=== PATIENT | male | born 1955 | race Caucasian/White ===

== ENCOUNTER 2019-09-21 00:27 | Outpatient (CLI) | payer BC, SELFPAY ==
[2019-09-21 19:45] LABS: SARS-CoV-2 RNA PCR Negative
== END 2019-09-21 00:28 | disposition home or self-care (01) ==
LOC: ANHCOVIDDT 00:27
PROVIDERS: PCP Internal Medicine; Visit Provider Internal Medicine Gastroenterology
DX: Z01.812 Encounter for preprocedural laboratory examination (principal); Z11.59 Encounter for screening for other viral diseases
CPT/HCPCS: 87635; C9803; U0003

== ENCOUNTER 2019-09-23 03:25 | Day surgery (SDC) | payer BC, SELFPAY ==
[2019-09-16 11:17] VITALS: BMI 36.6
[2019-09-23 06:37] VITALS: BP 142/72; PULSE 52; RESP 18; TEMP 36.1; O2SAT 98
[2019-09-23] MEDS: LACTATED RINGERS 1,000 ML 150 ML IV CONT (06:53)
--- NOTE | 2019-09-23 07:20 | WPDANESEPPF ---
Anes - Initial Pre Proc Eval Procedure: Operation Date: 09/23/19 08:00 Proposed Procedures p Screening Colonoscopy - Booker Chase DO Date/Time: 09/23/19 07:20 Surgeon: Booker Chase DO Pre Op Diagnosis: Hx of Malignant Large Neoplasm Of Colon Patient Data Age: 63 Gender: M Height: 1.8 m Weight: 119.2 kg Last Vital Signs Temp 36.1 C L 09/23/19 06:37 Pulse 52 L 09/23/19 06:37 Resp 18 09/23/19 06:37 BP 142/72 H 09/23/19 06:37 Pulse Ox 98 09/23/19 06:37 Allergies Allergy/AdvReac Type Severity Reaction Status Date / Time lisinopril Allergy Unknown Hives Verified 09/23/19 06:38 Home Medications Medication Instructions Recorded Confirmed Type amlodipine 10 mg tablet 10 mg PO DAILY #90 tablet 09/07/19 09/23/19 Rx atorvastatin 40 mg tablet 40 mg PO DAILY #90 tablet 09/07/19 09/23/19 Rx losartan 100 mg tablet 100 mg PO DAILY #90 tablet 09/07/19 09/23/19 Rx metoprolol succinate 25 mg 25 mg PO DAILY #90 tablet 09/07/19 09/23/19 Rx tablet,extended release 24 hr omeprazole 20 mg capsule,delayed 20 mg PO BID #180 cap 09/07/19 09/23/19 Rx release doxazosin 8 mg PO DAILY 09/16/19 09/23/19 History hydrochlorothiazide 12.5 mg PO DAILY 09/16/19 09/23/19 History Patient hx anesthesia problems: none Family hx anesthesia problems: none [facility] Past Medical History Medical History (Updated 09/23/19 @ 07:21 by Sp Rowland MD) Essential (primary) hypertension History of colon cancer Mixed hyperlipidemia Obesity EFE on CPAP Surgical History Surgical History H/O hernia repair H/O rotator cuff surgery History of colon resection Social History Social History Smoking status: Never smoker Alcohol intake: current Anes - Eval Final PreProcedure Day of Procedure 09/23/19 07:20 Patient weight: obese Heart: regular rate and rhythm Lungs: clear to auscultation and normal air movement Airway: Mallampati scale Neurological: alert and oriented Last oral intake: >/= 8 hours ASA classification: III Emergent: no Anesthetic plan: proceed Anesthesia type and monitoring: general GIVS Informed Consent: The patient's anesthetic plan and its attendant risks and benefits were discussed with the patient/family/POA. Questions were solicited and answers provided to the satisfaction of the patient/family/POA.
--- NOTE | 2019-09-23 08:09 | PM.IMHP ---
H&P: HPI History of Present Illness Chief complaint: Hx of Malignant Large Neoplasm Of Colon Narrative: Reason for visit screening and surveillance colonoscopy. This very pleasant gentleman seen in consultation at the request of the primary. Impression: History of colorectal cancer status post resection. Per past medical history. Recommendation: Will proceed with colonoscopy. History: This very pleasant gentleman is status post right hemicolectomy for adenocarcinoma of the colon. He had a polyp with invasive adenocarcinoma removed. Subsequent right hemicolectomy was carried out. He had a liver biopsy which was unremarkable. Physical examination: General: very pleasant patient in no acute distress. HEENT: Head was normocephalic sclerae is clear mouth without masses neck was supple. Heart: Rate rhythm regular without S3 or S4. Lungs: CTA. Abdomen: Soft with no guarding or rigidity. Bowel sounds were active. Neurologic: Cranial nerves 2 through 12 intact. No focal defects. No clonus. Musculoskeletal system: Revealed no joint tenderness or swelling no muscle atrophy. Extremities: Reveal no significant edema. Skin: Warm and dry with normal turgor. Mental status: intact. Patient is alert and oriented. Review of Systems Review of Systems: All systems reviewed & are unremarkable except as noted in HPI and below PMFSH Past Medical History Medical History (Updated 09/23/19 @ 08:08 by Booker Chase DO) BPH (benign prostatic hyperplasia) Essential (primary) hypertension History of colon cancer HLD (hyperlipidemia) HTN (hypertension) Obesity EFE on CPAP Surgical History Surgical History (Updated 09/23/19 @ 08:09 by Booker Chase DO) H/O colonoscopy H/O hernia repair H/O rotator cuff surgery History of colon resection Social History Social History Smoking status: Never smoker Alcohol intake: current Meds Home Medications and Allergies Home Medications Medication Instructions Recorded Confirmed Type amlodipine 10 mg tablet 10 mg PO DAILY #90 tablet 09/07/19 09/23/19 Rx atorvastatin 40 mg tablet 40 mg PO DAILY #90 tablet 09/07/19 09/23/19 Rx losartan 100 mg tablet 100 mg PO DAILY #90 tablet 09/07/19 09/23/19 Rx metoprolol succinate 25 mg 25 mg PO DAILY #90 tablet 09/07/19 09/23/19 Rx tablet,extended release 24 hr omeprazole 20 mg capsule,delayed 20 mg PO BID #180 cap 09/07/19 09/23/19 Rx release doxazosin 8 mg PO DAILY 09/16/19 09/23/19 History hydrochlorothiazide 12.5 mg PO DAILY 09/16/19 09/23/19 History Allergies Allergy/AdvReac Type Severity Reaction Status Date / Time lisinopril Allergy Unknown Hives Verified 09/23/19 06:38 Vital Signs Vital Signs - 24 hr 09/23/19 06:37 Temperature 36.1 C L Pulse Rate 52 L Respiratory Rate 18 Blood Pressure 142/72 H Pulse Oximetry 98
[2019-09-23 08:36] VITALS: BP 101/67; PULSE 57; RESP 16; O2SAT 99
[2019-09-23 08:46] VITALS: BP 122/75; PULSE 43; RESP 18; O2SAT 99
[2019-09-23 08:56] VITALS: BP 130/83; PULSE 46; RESP 18; O2SAT 99
== END 2019-09-23 09:15 | disposition home or self-care (01) ==
PROVIDERS: PCP Internal Medicine; Visit Provider Internal Medicine Gastroenterology
PROC: 0DJD8ZZ Inspection of Lower Intestinal Tract, Via Natural or Artificial Opening Endoscopic (ICD-10-PCS; CPT 45378; principal; 2019-09-23 08:00)
DX: Z12.11 Encounter for screening for malignant neoplasm of colon (principal); D12.3 Benign neoplasm of transverse colon; K64.8 Other hemorrhoids; Z85.038 Personal history of other malignant neoplasm of large intestine; Z98.0 Intestinal bypass and anastomosis status; Z90.49 Acquired absence of other specified parts of digestive tract; I10 Essential (primary) hypertension; E78.2 Mixed hyperlipidemia; G47.33 Obstructive sleep apnea (adult) (pediatric); E66.9 Obesity, unspecified; Z68.36 Body mass index [BMI] 36.0-36.9, adult
CPT/HCPCS: 45380; 88305; J2704; J7120

== ENCOUNTER 2020-07-20 10:00 | Outpatient (CLI) | payer BC, SELFPAY ==
--- NOTE | ~2020-07-20 | US_ITS ---
EXAMINATION:US venous doppler LE RT INDICATION:Soft tissue disorder TECHNIQUE: Multiple grayscale, color flow and Doppler images of the right lower extremity deep venous systems were obtained and reviewed. COMPARISON:No prior studies for comparison. FINDINGS: The common femoral, superficial femoral and popliteal veins demonstrate normal respiratory variation, augmentation and compressibility. Color flow is also seen within the posterior tibial, pe roneal, greater saphenous and profunda veins. IMPRESSION: 1: No lower extremity deep venous thrombosis. Reviewed, dictated and finalized at location B.
== END 2020-07-20 10:01 | disposition home or self-care (01) ==
PROVIDERS: PCP Internal Medicine; Visit Provider Nurse Practitioner
DX: M79.89 Other specified soft tissue disorders (principal)
CPT/HCPCS: 93971

== ENCOUNTER 2022-09-04 07:00 | Day surgery (SDC) | payer BC, SELFPAY ==
[2022-08-26 13:36] VITALS: BMI 36.3
--- NOTE | 2022-09-03 12:37 | PM.HPGS ---
History of Present Illness History of Present Illness Consent: Risks, benefits, and alternatives have been discussed and questions answered. Patient agrees to proceed with procedure. Chief complaint: hx of maligant neoplasm Narrative: Cyril Chau is a 66 year old male referred for colon cancer screening. He is high risk because he has had a prior carcinoma of the ascending colon. He has had a right colectomy. His last colonoscopy was 3 years ago. Polyp was removed at that time Review of Systems Review of Systems: All systems reviewed & are unremarkable except as noted in HPI and below PMFSH Past Medical History Medical History BPH (benign prostatic hyperplasia) Essential (primary) hypertension History of colon cancer Obesity EFE on CPAP Surgical History Surgical History H/O colonoscopy H/O hernia repair H/O rotator cuff surgery History of colon resection Family History Family History Father Family history of malignant neoplasm Patient's father is Mother Family history of dementia Family history of malignant neoplasm Social History Social History Smoking packs per day: 0.75 Smoking cigarettes per day: 15.0 Years smoked: 10 Smoking pack-years: 7.50 Smoking status: Never smoker Tobacco type: cigarettes Smoking end date: 05/14/91 Alcohol intake: current Drinks per week: 20 Substance use: never Substance use type: does not use Lack of Transportation: No Lack of Food: Never True Current Housing: I Have Housing Concerned About Future Housing: No Difficulty Paying Gas/Electric Bills: No Difficulty Paying for Meds: No Currently Unemployed: No Education: High School Diploma/GED Difficulty w/ Childcare or Family Care: No Living arrangements: other Additional living arrangements comments: With Occupation/Education: retired Gender identity (if verbalized by the patient): Male Meds Home Medications and Allergies Home Medications Medication Instructions Recorded Confirmed Type atorvastatin 40 mg tablet 40 mg PO DAILY #90 tabs 04/08/22 08/26/22 Rx omeprazole 20 mg capsule,delayed See Rx Instructions .Route 04/08/22 08/26/22 Rx release .COMPLEX #180 caps amlodipine 10 mg tablet See Rx Instructions .Route 08/12/22 08/26/22 Rx .COMPLEX #90 tabs doxazosin 8 mg tablet See Rx Instructions .Route 08/12/22 08/26/22 Rx .COMPLEX #90 tabs hydrochlorothiazide 12.5 mg capsule See Rx Instructions .Route 08/12/22 08/26/22 Rx .COMPLEX #90 caps metoprolol succinate 25 mg See Rx Instructions .Route 08/12/22 08/26/22 Rx tablet,extended release 24 hr .COMPLEX #90 tabs losartan 100 mg tablet See Rx Instructions .Route 08/14/22 08/26/22 Rx .COMPLEX #90 tabs Allergies Allergy/AdvReac Type Severity Reaction Status Date / Time lisinopril Allergy Mild Hives Verified 08/26/22 13:34 Exam Const: General: alert Orientation/consciousness: patient oriented x3 Resp: Auscultation: clear to auscultation bilaterally Cardio: Rhythm: regular rhythm GI: GI Palp: Yes Soft to palpation and No Tenderness to palpation present (GI) Neuro: General: patient oriented x3 Assessment and Plan Assessment and plan (1) History of colon cancer: Code(s): Z85.038 - Personal history of other malignant neoplasm of large intestine Status: Acute Assessment and Plan: Colonoscopy with possible biopsy or polypectomy or cautery or injection of substances. Plan Colonoscopy with possible biopsy or polypectomy or cautery or injection of substances.
--- NOTE | 2022-09-05 06:34 | SUR.PREOP ---
Paper documentation exist due to [employer] system being down from 09/04/22 0030 till 1930.
== END 2022-09-04 08:30 | disposition home or self-care (01) ==
PROVIDERS: PCP Nurse Practitioner; Visit Provider Internal Medicine Gastroenterology
PROC: 0DJD8ZZ Inspection of Lower Intestinal Tract, Via Natural or Artificial Opening Endoscopic (ICD-10-PCS; CPT 45378; principal; 2022-09-04 07:30)
DX: Z12.11 Encounter for screening for malignant neoplasm of colon (principal); K64.8 Other hemorrhoids; K57.30 Diverticulosis of large intestine without perforation or abscess without bleeding; Z98.0 Intestinal bypass and anastomosis status; Z90.49 Acquired absence of other specified parts of digestive tract; Z85.038 Personal history of other malignant neoplasm of large intestine; I10 Essential (primary) hypertension; G47.33 Obstructive sleep apnea (adult) (pediatric); N40.0 Benign prostatic hyperplasia without lower urinary tract symptoms; Z87.891 Personal history of nicotine dependence
CPT/HCPCS: 45378; J2704; J7120

== ENCOUNTER 2022-10-31 09:10 | Outpatient (CLI) | payer MEDICARE, SELFPAY ==
--- NOTE | 2022-10-31 09:32 | ECG_ITS ---
Measurements Intervals [place] Rate: 52 P: 38 NH: 195 QRS: -16 QRSD: 110 T: 23 QT: 486 QTc: 453 Interpretive Statements SINUS BRADYCARDIA WITH SINUS ARRHYTHMIA MINIMAL VOLTAGE CRITERIA FOR LVH, CONSIDER NORMAL VARIANT [MEETS CRITERIA IN ONE OF: R(aVL), S(V1), R(V5), R(V5/V6)+S(V1)] PROLONGED QT INTERVAL ARTIFACT LIMITS INTERPRETATION ABNORMAL ECG NO PREVIOUS ECG AVAILABLE FOR COMPARISON Electronically Signed On 10-31-2022 13:05:38 CDT by Yeison Rae M.D.
[2022-10-31 10:20] LABS: Anion Gap 5 mmol/L (8-16); Blood Urea Nitrogen 18 mg/dL (9-20); Calcium 9.1 mg/dL (8.4-10.2); Carbon Dioxide 30 mmol/L (22-30); Chloride 101 mmol/L (98-107); Estimated Glomerular Filt Rate > 60; Glucose 104 mg/dL (65-110); Potassium 4.3 mmol/L (3.4-5.0); Sodium 136 mmol/L (137-145)
== END 2022-10-31 09:11 | disposition home or self-care (01) ==
LOC: ANHSURGERY 09:16
PROVIDERS: Anesthesiology; PCP Nurse Practitioner; Visit Provider Urology
DX: I10 Essential (primary) hypertension (principal); Z79.899 Other long term (current) drug therapy; Z01.818 Encounter for other preprocedural examination
CPT/HCPCS: 36415; 80048; 93005

== ENCOUNTER 2022-11-05 04:12 | Day surgery (SDC) | payer MEDICARE, SELFPAY ==
[2022-10-28 15:30] VITALS: BMI 36.3
--- NOTE | 2022-10-28 15:32 | SUR.PREOP ---
Report to the Outpatient Waiting Room, entrance under the green pavilion located off [facility], at time _0615 on date _11/05/22 . Planned Procedure Time: _814 . Time changes happen often and if your time is changed the preop area will call you the afternoon before. - You and your visitor will be asked to self-screen and do not enter if you have any COVID symptoms. - A mask is optional within the hospital at this time. Patients may have clear liquids (water, carbonated beverages, clear teas, apple juice) until 3 hours prior to surgery with a maximum of 20 ounces. - No food from midnight until time of surgery - Infants may have breast milk until 4 hours before surgery, infant formula 6 hours prior to surgery. - Children will be allowed to drink immediately following surgery. If applicable, please bring a bottle or sippy cup to assist with drinking. Juice, water, soda, and popsicles are readily available. For infants on formula, please bring formula the day of surgery. Pacifiers are allowed. Take the following medications with a SIP of water the morning of surgery: _AMLODIPINE,METOPROLOL DO NOT STOP ANY OF YOUR OTHER PRESCRIPTION MEDICATIONS PRIOR TO SURGERY ?EXCEPT THE FOLLOWING Medications to discontinue per physician VITAMINS SUPPLEMENTS Date to take last dose___11/02/22 Please no make-up, nail english, hairspray, perfume, deodorant, or body powder the day of surgery. No jewelry (including any body piercings) or valuables the day of surgery, leave them at home. Please take a shower or bath the night before, or the morning of, surgery with an antibacterial soap. Wear comfortable, loose fitting clothing. Children are encouraged to wear pajamas. - Jewelry must be removed prior to entering the operating room. Rings and piercings that are not removed may be cut off. - The hospital will not accept responsibility for valuables. - Please leave all valuables, including medications, at home the day of surgery. If you are going home after surgery, a licensed dedicated intermodal truck driver must drive you home. - NO public transportation without another adult if you receive anesthesia. - We recommend that an adult stay with you for 24 hours following discharge. - We also recommend that you do not drive, make important decision, drink alcoholic beverages, or take any drugs that were not prescribed by your health care provider for at least 24 hours after your discharge time. For Pediatric surgeries, we recommend two adults accompany the child home. Follow any additional instructions given to you from your surgeon. If you or anyone in your household have experienced Covid symptoms in the past week, please notify your surgeon or the nurse liaison at the phone number below for possible testing. Telephone instructions given to _PRAKASH MAY and asked if any additional questions and then verbalized understanding. Patient advised to call surgeon office or pre surgery nurse liaison [phone] if any additional questions.
[2022-11-05] VITALS (7 sets, daily range): BP systolic 120–152; BP diastolic 67–91; PULSE 48–57; RESP 14–18; TEMP 36.3–37.1; O2SAT 94–97
[2022-11-05] MEDS: LACTATED RINGERS 1,000 ML 30 ML IV CONT (06:57)
--- NOTE | 2022-11-05 07:37 | WPDANESEPPF ---
Anes - Initial Pre Proc Eval Procedure: Operation Date: 11/05/22 08:15 Proposed Procedures p Left Hydrocelectomy - Darius Anthony MD Date/Time: 11/05/22 07:37 Surgeon: Darius Anthony MD Pre Op Diagnosis: left hydrocele Patient Data Age: 66 Gender: M Height: 1.8 m Weight: 119.6 kg Last Vital Signs Temp 97.3 F L 11/05/22 06:58 Pulse 50 L 11/05/22 06:58 Resp 16 11/05/22 06:58 BP 135/67 11/05/22 06:58 Pulse Ox 97 11/05/22 06:58 O2 Del Method Room Air 11/05/22 06:58 Allergies Allergy/AdvReac Type Severity Reaction Status Date / Time lisinopril Allergy Mild Hives Verified 11/05/22 06:36 Home Medications Medication Instructions Recorded Confirmed Type atorvastatin 40 mg tablet 40 mg PO DAILY #90 tabs 04/08/22 10/28/22 Rx omeprazole 20 mg capsule,delayed See Rx Instructions .Route 04/08/22 10/28/22 Rx release .COMPLEX #180 caps amlodipine 10 mg tablet See Rx Instructions .Route 08/12/22 10/28/22 Rx .COMPLEX #90 tabs doxazosin 8 mg tablet See Rx Instructions .Route 08/12/22 10/28/22 Rx .COMPLEX #90 tabs hydrochlorothiazide 12.5 mg capsule See Rx Instructions .Route 08/12/22 10/28/22 Rx .COMPLEX #90 caps metoprolol succinate 25 mg See Rx Instructions .Route 08/12/22 10/28/22 Rx tablet,extended release 24 hr .COMPLEX #90 tabs losartan 100 mg tablet See Rx Instructions .Route 08/14/22 10/28/22 Rx .COMPLEX #90 tabs coenzyme Q10 100 mg capsule 100 mg PO DAILY 10/28/22 10/28/22 History (CoQ-10) fiber 1 cap PO DAILY 10/28/22 10/28/22 History omega 9-xml-axr-fish oil 300 1 cap PO DAILY 10/28/22 10/28/22 History mg-1,000 mg capsule (Fish Oil) saw palmetto 160 mg capsule 160 mg PO BID 10/28/22 10/28/22 History Patient hx anesthesia problems: none Family hx anesthesia problems: none Results Review: All pre-operative results and documents have been reviewed as part of the pre-operative evaluation. [facility] Past Medical History Medical History BPH (benign prostatic hyperplasia) Essential (primary) hypertension History of colon cancer Obesity EFE on CPAP Surgical History Surgical History H/O colonoscopy H/O hernia repair H/O rotator cuff surgery History of colon resection Family History Family History Father Family history of malignant neoplasm Patient's father is Mother Family history of dementia Family history of malignant neoplasm Social History Social History Smoking packs per day: 0.75 Smoking cigarettes per day: 15.0 Years smoked: 10 Smoking pack-years: 7.50 Smoking status: Former smoker Tobacco type: cigarettes Smoking end date: 03/24/09 Additional smoking assessment comments: cigarettes 1 pp week 5 years Alcohol intake: current Drinks per week: 5 Substance use: never Substance use type: does not use Lack of Transportation: No Lack of Food: Never True Current Housing: I Have Housing Concerned About Future Housing: No Difficulty Paying Gas/Electric Bills: No Difficulty Paying for Meds: No Currently Unemployed: No Education: High School Diploma/GED Difficulty w/ Childcare or Family Care: No Living arrangements: with family Additional living arrangements comments: With Occupation/Education: retired Gender identity (if verbalized by the patient): Male Spiritual care concerns: No Anes - Eval Final PreProcedure Day of Procedure 11/05/22 07:37 Patient weight: obese Heart: regular rate and rhythm Lungs: clear to auscultation Airway: Mallampati scale class II Neurological: alert and oriented Last oral intake: >/= 8 hours ASA classification: III Emergent: no Anesthetic plan: proceed Anesthesia type and monitoring: general LMA and standard monit
--- NOTE | 2022-11-05 07:37 | WPDHPUPDATE1 ---
History and Physical Update Update Date/Time: 11/05/22 07:37 History and Physical has been reviewed, including an updated exam of the patient. There are NO changes in the patient's condition. Risks, benefits, and alternatives have been discussed and questions answered. Patient agrees to proceed with left hydrocelectomy and orchiopexy
[2022-11-05] MEDS: ceFAZolin 2 GM/D5W 50 ML 2 GM/50 ML BAG IVPB (08:37)
[2022-11-05] MEDS: LIDOCAINE HCL 1% LOCAL INJ 20 ML VIAL INFILTRATE (09:06)
--- NOTE | 2022-11-05 10:00 | W.PM.PROC2 ---
Procedure Note - Detailed Date of Procedure 11/05/22 Pre-op Diagnosis left hydrocele Post-op Diagnosis Same (Left hydrocele, left spermatocele) Procedure Performed Scrotal exploration with left hydrocelectomy, left spermatocelectomy, left orchiopexy Surgeon Darius Anthony MD Anesthesia General Description of Procedure Patient was taken to the operative suite correctly identified. Once anesthesia was obtained was prepped and draped usual sterile fashion. Transverse incision was made along the left hemiscrotum. This carried down to the tunica. The entire hydrocele was brought out into the operative field. The hydrocele was opened and drained of some clear straw colored fluid. It was loculated. The hydrocele sac was sent for pathologic review after was excised. Patient was also then noted to have loculated spermatoceles. These were carried down to its origin. Its origin was ligated. The appendix testes was removed. Hemostasis was achieved using electrocautery. Quarter-inch Yoselyn drain was then placed through a separate stab incision and secured. An orchiopexy was then performed by securing it in 3 points using Ethibond suture. Tunica was closed using 3-0 chromic in a running fashion. Skin was anesthetized with 1% lidocaine. Skin was closed with using 3-0 chromic in a running fashion also. Patient was taken recovery room stable condition. He will remove the Yoselyn drain in 2-3 days. This completes dictation. Please send a copy to my office Estimated Blood Loss 0 Drains Yes Packing No Pathology Yes (Hydrocele sac, spermatocele sac) Complications No immediate complications Condition Stable Disposition PACU
[2022-11-05] MEDS: fentaNYL CITRATE INJ (*CRX) 100 MCG/2 ML VIAL 25 MCG IV PUSH ×8 (10:18→10:54)
[2022-11-05] MEDS: oxyCODONE HCL (*CRX) 5 MG TAB IR PO (11:05)
== END 2022-11-05 11:38 | disposition home or self-care (01) ==
PROVIDERS: PCP Nurse Practitioner; Visit Provider Urology
PROC: (CPT 55040; principal; 2022-11-05 08:15)
DX: N43.3 Hydrocele, unspecified (principal); N43.42 Spermatocele of epididymis, multiple; I10 Essential (primary) hypertension; G47.33 Obstructive sleep apnea (adult) (pediatric); N40.0 Benign prostatic hyperplasia without lower urinary tract symptoms; Z85.038 Personal history of other malignant neoplasm of large intestine; Z90.49 Acquired absence of other specified parts of digestive tract; E66.9 Obesity, unspecified; Z68.36 Body mass index [BMI] 36.0-36.9, adult; Z87.891 Personal history of nicotine dependence
CPT/HCPCS: 55040; 54640; 88302; 88304; A9270; J0690; J1100; J2405; J2704; J3010; J7120

== ENCOUNTER 2023-10-24 08:22 | Outpatient (CLI) | payer MEDICARE, SELFPAY ==
--- NOTE | ~2023-10-24 | MR_ITS ---
MRI of the right shoulder Technique: Axial proton-density fat-sat images, coronal proton density fat-sat and T2 fat-sat images, and sagittal T1-weighted and T2 fat-sat images were acquired. Clinical History: Pain Findings: There is moderate AC joint degenerative change. Coracoclavicular, coracoacromial, and corac ohumeral ligaments are intact. There are complete, full-thickness tears involving the entirety of the supraspinatus and infraspinatu s tendons, which are retracted to the level of the glenohumeral joint. Fluid-filled gap measures 5.2 x 4.8 cm in extent. Subscapularis tendon demonstrates moderate grade articular surface partial tearin g at its midportion. Tendon of long head of the biceps is probably completely ruptured and retracted to the bicipital groove region. No labral tear evident. Inferior glenohumeral ligament is intact. There is glenohumeral joint effusion, with fluid passing th rough the rotator cuff defect into the subacromial/subdeltoid bursa. There is subcoracoid bursal flui d distention. There is mild chondromalacia diffusely of the humeral head. Probable mild fatty atrophy of the supraspinatus and infraspinatus muscle bellies. Impression: Complete, full-thickness tears of the supraspinatus and infraspinatus tendons, as detailed above. Ass ociated mild fatty atrophy of the relevant muscle bellies. Probable complete rupture of the proximal long head biceps tendon with retraction to the bicipital gr oove. Moderate AC joint degenerative change. Mild glenohumeral joint degenerative change. Reviewed, dictated and finalized at location . Impression: Complete, full-thickness tears of the supraspinatus and infraspinatus tendons, as detailed above. Associated mild fatty atrophy of the relevant muscle bellies . Probable complete rupture of the proximal long head biceps tendon with retracti on to the bicipital groove. Moderate AC joint degenerative change. Mild glenohumeral joint degenerative campos nge.
== END 2023-10-24 08:23 ==
PROVIDERS: PCP Family Medicine
DX: M75.121 Complete rotator cuff tear or rupture of right shoulder, not specified as traumatic (principal); M19.011 Primary osteoarthritis, right shoulder
CPT/HCPCS: 73221

== ENCOUNTER 2023-12-10 09:50 | Outpatient (CLI) | payer MEDICARE, SELFPAY ==
--- NOTE | ~2023-12-10 | US_ITS ---
EXAMINATION: US carotid duplex BI DATE: 12/10/2023 10:48 INDICATION: Occlusion and stenosis of unspecified carotid artery. TECHNIQUE: Grayscale, color Doppler, and pulsed Doppler images of the cervical carotid arteries were obtained. The degree of vessel stenosis is placed in one of the following categories: normal, <50%, 5 0-69%, >=70% but less than near-occlusion, near-occlusion, or total occlusion. Note that percent sten osis relative to normal distal artery lumen diameter is indirectly measured from velocity measurement s as described by Nitish, et al. Radiology 2003; 229:340-346. COMPARISON: None. FINDINGS: RIGHT: The right common carotid artery (CCA) peak systolic velocity (PSV) is 92 cm/s. The right internal car otid artery (ICA) PSV is 51 cm/s. The right ICA end-diastolic velocity (EDV) is 9 cm/s. The right ICA /CCA PSV ratio is 0.6. Grayscale and color Doppler images yield an estimate of <50% diameter reductio n from plaque in the ICA. There is antegrade flow in the right vertebral artery. LEFT: The left CCA PSV is 114 cm/s. The left ICA PSV is 94 cm/s. The left ICA EDV is 28 cm/s. The left ICA/ CCA PSV ratio is 0.8. Grayscale and color Doppler images yield an estimate of <50% diameter reduction from plaque in the ICA. There is antegrade flow in the left vertebral artery. IMPRESSION: 1. <50% stenosis in the right internal carotid artery. 2. <50% stenosis in the left internal carotid artery. Reviewed, dictated and finalized at location A.
== END 2023-12-10 09:51 | disposition home or self-care (01) ==
PROVIDERS: PCP Family Medicine; Visit Provider Family Medicine
DX: I73.9 Peripheral vascular disease, unspecified (principal); M79.89 Other specified soft tissue disorders; I65.23 Occlusion and stenosis of bilateral carotid arteries
CPT/HCPCS: 93880

== ENCOUNTER 2024-01-29 08:51 | Outpatient (CLI) | payer MEDICARE, SELFPAY ==
--- NOTE | ~2024-01-29 | US_ITS ---
EXAMINATION: US arterial ankle brachial ind DATE: 01/29/2024 09:36 INDICATION: Peripheral vascular disease, unspecified. TECHNIQUE: Segmental pressures and plethysmographic and Doppler waveforms of the brachial and lower e xtremity arteries were obtained. COMPARISON: None. FINDINGS: Right and left brachial artery pressures of 144 mm Hg and 135 mm Hg, respectively, are concordant (no rmal difference <= 30 mmHg). The right ankle-brachial index (SRI) could not be obtained due to inability to cuff occlude the arter ies (normal >= 0.9-1.0). The right great toe-brachial index (TBI) is 0.91 (normal >= 0.65). Arterial Doppler waveforms are at least biphasic at the ankle. The left SRI is 1.33. The left TBI is 0.90. Arterial Doppler waveforms are at least biphasic at the a nkle. IMPRESSION: 1. No significant arterial occlusive disease. Reviewed, dictated and finalized at location A. ICAL PROFESSOR
== END 2024-01-29 08:52 | disposition home or self-care (01) ==
PROVIDERS: PCP Family Medicine; Visit Provider Family Medicine
DX: I73.9 Peripheral vascular disease, unspecified (principal); M79.89 Other specified soft tissue disorders
CPT/HCPCS: 93922

== ENCOUNTER 2024-02-19 12:35 | Emergency (ER) | payer MEDICARE, SELFPAY ==
[2024-02-19 12:50] VITALS: BP 129/66; PULSE 60; RESP 16; TEMP 36.6; O2SAT 100
--- NOTE | 2024-02-19 12:59 | ED.SKABFB ---
HPI - Skin/Abscess/Foreign Bdy General Chief complaint: Skin/Abscess/Foreign Body Stated complaint: RASH/HIVES Time Seen by Provider: 02/19/24 12:40 History of Present Illness HPI narrative: Patient is a 68-year-old male who presents ER with concerns for rash. Reports he woke up this morning and was having itching to his left foot and leg as well as his back. He noticed some hives. He then went and took a shower. Symptoms started 4 taking his home medications. He reports he has had no oxycodone or anti-inflammatory medication today. No difficulty breathing or swallowing. No evidence of rash at this time but he is itching his left arm and leg. No new fabric softeners/ laundry detergents/body washes/ lungs. Related Data Home Medications Medication Instructions Recorded Confirmed coenzyme Q10 100 mg capsule 100 mg PO DAILY 10/28/22 04/01/23 (CoQ-10) saw palmetto 160 mg capsule 160 mg PO DAILY 04/01/23 04/01/23 fiber 4 cap PO DAILY 05/20/23 omega 2-aga-dlc-fish oil 300 1 cap PO BID 05/20/23 mg-1,000 mg capsule (Fish Oil) Allergies Allergy/AdvReac Type Severity Reaction Status Date / Time lisinopril Allergy Mild Hives Verified 02/19/24 12:35 Review of Systems Constitutional: Constitutional: Reports no additional constitutional complaints ENT: Reports system reviewed and no additional complaints, except as documented Respiratory: Respiratory: Reports no additional respiratory complaints Musculoskeletal: Musculoskeletal: Reports no additional musculoskeletal complaints Integumentary/Breasts: Skin/Breast: Reports pruritus, Denies erythema and Denies rash COUNT INCLUDES THE [facility] Past Medical History Medical History (Updated 02/19/24 @ 13:02 by Felton Keen MD) BPH (benign prostatic hyperplasia) Essential (primary) hypertension History of colon cancer Obesity EFE on CPAP Surgical History Surgical History H/O colonoscopy H/O hernia repair H/O rotator cuff surgery History of colon resection Family History Family History Father Family history of malignant neoplasm Patient's father is Mother Family history of dementia Family history of malignant neoplasm Social History Social History Smoking packs per day: 0.75 Smoking cigarettes per day: 15.0 Years smoked: 10 Smoking pack-years: 7.50 Smoking status: Former smoker Tobacco type: cigarettes Smoking end date: 03/24/19 Additional smoking assessment comments: cigarettes 1 pp week 5 years Alcohol intake: current Drinks per week: 5 Substance use: never Substance use type: does not use Do You Feel Safe in your Home?: Yes Lack of Transportation: No Lack of Food: Never True Current Housing: I Have Housing Concerned About Future Housing: No Difficulty Paying Gas/Electric Bills: No Difficulty Paying for Meds: No Currently Unemployed: No Education: High School Diploma/GED Difficulty w/ Childcare or Family Care: No Living arrangements: with family Additional living arrangements comments: With Occupation/Education: retired Gender identity (if verbalized by the patient): Male Sexual Orientation (if Verbalized by the Patient): Straight or Heterosexual Spiritual care concerns: No Agree to blood products: Yes Exam Narrative: GENERAL: Well-appearing, well-nourished, and in no acute distress. HEAD: Normocephalic, atraumatic. ENT: Mucous membranes moist. EXTREMITIES: Normal range of motion. No edema. SKIN: Warm, dry, no rash. FLaky dry skin. NEURO: Alert and oriented x3. PSYCH: Normal mood and affect. Course Course Emergency Course: Patient walked out after registration before he could receive discharge papers. He is to take Zyrtec and/or Benadryl as needed for itching at home. Also recommended that he purchase a hydrating skin lotion without perfumes as he appears to have some dry skin. Discharge Plan Discharge Clinical Impression: Rash Patient Disposition: Home, Self-Care Condition: Stable Instructions: Itchy Skin (ED) Prescriptions: No Action Zepbound 2.5 mg/0.5 mL pen injector 2.5 mg subcut WEEKLY Qty: 2 0RF Rx Instructions: for 4 weeks coenzyme Q10 [CoQ-10] 100 mg Capsule 100 mg PO DAILY saw palmetto 160 mg capsule 160 mg PO DAILY Rx Instructions: give with meal/snack fiber Capsule 4 cap PO DAILY omega 3-rsn-lde-fish oil [Fish Oil] 300-1,000 mg capsule 1 cap PO BID losartan 100 mg tablet See Rx Instructions .ROUTE .COMPLEX Qty: 90 1RF Dose Instruction: TAKE 1 TABLET DAILY Rx Instructions: TAKE 1 TABLET DAILY amlodipine 10 mg tablet See Rx Instructions .ROUTE .COMPLEX Qty: 90 3RF Dose Instruction: TAKE 1 TABLET DAILY Rx Instructions: TAKE 1 TABLET DAILY metoprolol succinate 25 mg tablet extended release 24 hr See Rx Instructions .ROUTE .COMPLEX Qty: 90 3RF Dose Instruction: TAKE 1 TABLET DAILY Rx Instructions: TAKE 1 TABLET DAILY doxazosin 8 mg tablet See Rx Instructions .ROUTE .COMPLEX Qty: 90 3RF Dose Instruction: TAKE 1 TABLET DAILY Rx Instructions: TAKE 1 TABLET DAILY rosuvastatin 10 mg tablet See Rx Instructions .ROUTE .COMPLEX Qty: 90 3RF Dose Instruction: TAKE 1 TABLET DAILY Rx Instructions: TAKE 1 TABLET DAILY omeprazole 20 mg capsule,delayed release(DR/EC) See Rx Instructions .ROUTE .COMPLEX Qty: 180 3RF Dose Instruction: TAKE 1 CAPSULE TWICE A DAY BEFORE MEALS Rx Instructions: TAKE 1 CAPSULE TWICE A DAY BEFORE MEALS Follow-up/Referrals: Jorge A Brothers MD [Primary Care Provider] -
== END 2024-02-19 13:18 | disposition home or self-care (01) ==
PROVIDERS: Emergency Provider Emergency Medicine; PCP Family Medicine
DX: R21 Rash and other nonspecific skin eruption (principal); I10 Essential (primary) hypertension; N40.0 Benign prostatic hyperplasia without lower urinary tract symptoms; G47.33 Obstructive sleep apnea (adult) (pediatric); E66.9 Obesity, unspecified; Z68.36 Body mass index [BMI] 36.0-36.9, adult; Z85.038 Personal history of other malignant neoplasm of large intestine; Z87.891 Personal history of nicotine dependence; Z90.49 Acquired absence of other specified parts of digestive tract
CPT/HCPCS: 99281

== ENCOUNTER 2024-04-06 09:55 | Outpatient (CLI) | payer MEDICARE, SELFPAY ==
--- NOTE | ~2024-04-06 | US_ITS ---
EXAMINATION: US thyroid DATE: 04/06/2024 10:10 INDICATION: Nontoxic multinodular goiter. TECHNIQUE: Multiple ultrasound images of the thyroid were obtained. COMPARISON: Neck CT 04/01/2024 FINDINGS: The right thyroid lobe measures 7.2 x 3.8 x 3.9 cm. The left thyroid lobe measures 4.5 x 2.2 cm. In the right thyroid lobe, there is a 4.8 cm mixed cystic and solid, hypoechoic, wider than tall nodule with smooth margin without echogenic foci (TI-RADS TR3). In the left thyroid lobe, there is a 9 mm s olid, very hypoechoic, wider than tall nodule with ill-defined margin without echogenic foci (TR4). I n the left thyroid lobe, there is a 15 mm solid, hypoechoic, wider than tall nodule with lobulated ma rgin without echogenic foci (TR4). IMPRESSION: 1. Multinodular goiter. Ultrasound-guided fine-needle aspiration of the 4.5 cm right thyroid nodule a nd 15 mm left thyroid nodule is recommended. Reviewed, dictated and finalized at location A. [employer] IMPRESSION: 1. Multinodular goiter. Ultrasound-guided fine-needle aspiration of the 4.5 cm right thyroid nodule and 15 mm left thyroid nodule is recommended.
== END 2024-04-06 09:56 | disposition home or self-care (01) ==
LOC: MICIMG 09:56
PROVIDERS: PCP Family Medicine; Visit Provider Nurse Practitioner Family
DX: E04.2 Nontoxic multinodular goiter (principal)
CPT/HCPCS: 76536

== ENCOUNTER 2024-06-11 14:19 | Emergency (ER) | payer MEDICARE, SELFPAY ==
--- NOTE | ~2024-06-11 | XR_ITS ---
XR knee RT min 4V Ordering provider: Bertha Andersen PA-C History: . knee pain and effusion . Comparison: None. FINDINGS: BONES: No acute fracture or dislocation. Expansile area seen in the fibula partially imaged. Proper imaging advised. JOINT SPACES: Normal. SOFT TISSUES: Minimal fluid in the suprapatellar bursa. IMPRESSION: No acute osseous abnormality right knee. Spinal synovial area and proximal fibula. Reviewed, dictated and finalized at location A.
--- NOTE | ~2024-06-11 | XR_ITS ---
XR tibia fibula RT 2V Ordering provider: Bertha Andersen PA-C History: . right knee pain, abnormal xr right knee, NO PRIOR INJURY . Comparison: None. FINDINGS: BONES: No acute fracture or dislocation. Healing fracture in the proximal one third of the fibula. JOINT SPACES: Normal. SOFT TISSUES: Normal. Calcaneal spur. IMPRESSION: No acute osseous abnormality right leg. Reviewed, dictated and finalized at location A.
[2024-06-11 14:33] VITALS: BP 157/59; PULSE 64; RESP 16; TEMP 36.5; O2SAT 96
--- OUTSIDE RECORDS SUMMARY | 2024-06-11 14:38 | XMS_ITS | Encounter Summary ---
Author Organization [facility] Address [address] [place] [address] Care Team Providers Care Instructional Coordinator Name Role Phone Unavailable Primary Care Provider Unavailabl e Encounter Details Date Type Department Care Team (Late st Contact Info) Description 12/18/2018 Lab Requisition [facility] [address] [place] [address] Jackie Alexander MD [address] [place] [address] Social History Tobacco Use Types Packs/Day Years Used Date Smoking Tobacco: Never Assessed Sex and Gender Information Value Date Recorded Sex Assigned at Not on file Gender Identity Not on file Sexual Orientation Not on file documented as of this encounter Plan of Treatment Not on file documented as of this encounter Procedures Procedure Name Priority Date/Time Associated Diagnosis Comments DERMATOPATHOLOGY Routine 12/17/2018 12:0 0 AM CDT documented in this encounter Results * DERMATOPATHOLOGY (12/17/2018 12:00 AM CDT) Case Report Dermatopathology Report Case: [id number] Authorizing Provider: Jackie Alexander MD Collected: 12/17/2018 12:00 AM Ordering Location: [facility] Received: 12/18/2018 06:54 AM Pathologist: Barbie Ruiz MD Specimen: Skin, back 9 1:20 PM CDT DERMATOPATHOLOGY LABORATORY Final Diagnosis Specimen A. SKIN, back: LENTIGINOUS MELANOCYTIC NEVUS, COMPOUND TYPE, IRRITATED (COMPOUND MELANOCYTIC NEVUS WITH ARCHITECTURAL DISORDER) (D22.5) 9 1:20 PM CDT DERMATOPATHOLOGY LABORATORY Clinical History R/O melanoma vs nevus, irregular color. Brown papule. 1:20 PM CDT DERMATOPATHOLOGY LABORATORY Gross Description Specimen A: Received is one formalin filled container labeled with the patient's name and designated back. The specimen consists of a shave measuring [id number]. Jar 0. 1:20 PM CDT DERMATOPATHOLOGY LABORATORY Microscopic Description Specimen A. SKIN, back: This is a compound nevus. There is melanin pigment in the stratum corneum. There is architectural disorder characterized by a lentiginous proliferation of melanocytes between irregular nevus nests of cells along the dermal epidermal junction. There is underlying fibroplasia of the papillary dermis. The intradermal component is bland in appearance and matures with depth. (Compound Humberto's Nevus or Compound Dysplastic Nevus) 1:20 PM CDT DERMATOPATHOLOGY LABORATORY Disclaimer An external and internal positive and negative controls are appropriate for the histochemical, immunohistochemical and immunofluorescence stain(s) in this case (if any), except where stated explicitly. The performance characteristics of the stain(s) cited in this report were developed and its performance characteristic determined by the Dermatopathology Laboratory at [facility], directed by Dr. Karine Whitaker. These tests need not be, and therefore are not, approved by the [place] Food and Drug Administration. The tests are used for clinical purposes. Billing Codes Specimen Charges Stain Charges 12943 1 1:20 PM CDT DERMATOPATHOLOGY LABORATORY Embedded Images 1:20 PM CDT DERMATOPATHOLOGY LABORATORY Pathology/Cytolog y TISSUE SPECIMEN FROM SKIN / Unknown 12/17/2018 12/18/2018 6:54 AM CDT Jackie Alexander MD LAB - PATHOLOGY/CYTO LOGY ORDERABLES DERMATOPATHOLOGY LABORATORY [facility] - Department of Dermatology [address] [place] [address], [facility] [phone] documented in this encounter Visit Diagnoses Not on filedocumented in this encounter
--- OUTSIDE RECORDS SUMMARY | 2024-06-11 14:38 | XMS_ITS | Clinical Summary ---
Author Organization [facility] Address [address] [place] [address] Care Team Providers Care Intermodal Truck Driver Name Role Phone Unavailable Primary Care Provider Unavailabl e Source Comments [facility],non-owned Affiliates and Associated Physician Practices is amultiple site organization consisting of ambulatory clinics and hospital sitesin [place], [place], [place] and [place]. This disclosure is being madepursuant to the Care Everywhere program and may not contain all information available regarding this patient. Last updated 17.[facility] [employer] Social History Tobacco Use Types Packs/Day Years Used Date Smoking Tobacco: Never Assessed Sex and Gender Information Value Date Recorded Sex Assigned at Not on file Gender Identity Not on file Sexual Orientation Not on file Plan of Treatment Health Maintenance Due Date Last Done Comments COLOGUARD (AGES 45-75) - COL ON CA SCREENING 1957 COLON MONITORING 1957 COLONOSCOPY - COLON CA SCREENING 1957 CT COLONOGRAPHY - COLON CA SCREENING 1957 Colorectal Cancer Screening 1957 FIT - COLON CA SCREENING 1957 FLEX SIG - COLON CA SCREENING 1957 LIPID TESTING 1957 MEDICARE AWV 12 MONTHS 1957 HEPATITIS C SCREENING 11/02/1975 DTAP/TDAP/TD VACCINES (1 - Tdap) 1976 PNEUMOCOCCAL VACCINE 50+ (1 of 1 - PCV) 11/07/2007 ZOSTER VACCINE (1 of 2) 11/07/2007 COVID-19 VACCINE ( - 2023-2 5 season) 2023 INFLUENZA VACCINE (#1) 2023 DEPRESSION SCREENING 03/24/2024 Respiratory Syncytial Virus (RSV) Vaccine Pt: or over 60 yrs (1 - 1-dose 75+ series) 2032 HEPATITIS B VACCINE Aged Out No longe r eligible based on patient's age to complete this topic HIB VACCINE Aged Out No longer eligi ble based on patient's age to complete this topic HPV VACCINE Aged Out No longer eligi ble based on patient's age to complete this topic MENINGOCOCCAL (Group B) VACC INE SHARED DECISION-MAKING Aged Out No longer eligibl e based on patient's age to complete this topic MENINGOCOCCAL GROUPS A/C/Y/W VACCINE Aged Out No longer eligible b ased on patient's age to complete this topic
--- OUTSIDE RECORDS SUMMARY | 2024-06-11 14:38 | XMS_ITS | Clinical Summary ---
Author Organization [facility] Address [address] [place] [address] Care Team Providers Care Director Employment Name Role Phone Jorge A Brothers MD Primary Care Provider [phone] Allergies Active Allergy Reactions Criticality Noted Date Comments Lisinopril Hives,Swelling Medium 11/11/2017 Medications doxazosin (CARDURA) 8 mg tabletIndication s:benign prostatic hyperplasia with lower urinary tract sx Take 1 tablet (8 mg total) by mouth nightly 3 8 Active losartan (COZAAR) 100 mg tabletIndication s:hypertension Take 1 tablet (100 mg total) by mouth nightly 1 8 Active metoprolol XL (TOPROL-XL) 25 mg 24 hr tabletIndication s:hypertension Take 1 tablet (25 mg total) by mouth nightly 3 8 Active omeprazole (PriLOSEC) 20 mg capsuleIndicatio ns:Treatment of Non-Bleeding Gastric Disorder Take 1 capsule (20 mg total) by mouth 2 (two) times a day Active omega 9-lvo-dom-fish oil 1,200 (144-216) mg capsuleIndicatio ns:OTC/ Heart health Take 1 capsule by mouth 2 (two) times a day Active SAW PALMETTO ORALIndications: supplement/ Prostate Take 1 capsule by mouth every morning Active rosuvastatin (CRESTOR) 10 mg tabletIndication s:hyperlipidemia Take 1 tablet (10 mg total) by mouth every morning 4 Active triamcinolone (KENALOG) 0.1 % cream Apply 1 g topically as needed for rash 4 Active psyllium seed, with sugar, (FIBER ORAL)Indications :bowels Take 1 tablet by mouth 2 (two) times a day Active COQ10, UBIQUINOL, ORALIndications: OTC/ Take with Statin med Take 1 tablet by mouth every morning Active amLODIPine (NORVASC) 10 mg tabletIndication s:hypertension Take 1 tablet (10 mg total) by mouth nightly Active cholecalciferol (VITAMIN D-3) 50,000 unit capsule Take one capsule a week for 8 weeks. 8 capsule 4 Active oxyCODONE (ROXICODONE) 5 mg immediate release tabletIndication s:Pain Take 1 tablet (5 mg total) by mouth every 4 (four) hours as needed for pain (post op pain) 40 tablet 4 Active senna-docusate (PERICOLACE) 8.6-50 mg Take 1 tablet by mouth daily 30 tablet 4 Active aspirin 81 mg chewable tablet Take 1 tablet (81 mg total) by mouth 2 (two) times a day with lunch and bedtime for 14 days 28 tablet 4 Active celecoxib (CeleBREX) 100 mg capsuleIndicatio ns:Postoperative Acute Pain Take 1 capsule (100 mg total) by mouth 2 (two) times a day for 14 days 28 capsule 4 Active acetaminophen (TYLENOL) 500 mg tablet Take 2 tablets (1,000 mg total) by mouth every 6 (six) hours as needed for pain 90 tablet 4 Active Active Problems Problem Noted Date Diagnosed Date Complete tear of right rotator cuff 02/05/2024 Glenohumeral arthritis, right 12/30/2023 Pain in joint of left shoulder 11/11/2017 Overview (11/11/2017): Added automatically from request for surgery [id number] Tear of left rotator cuff 11/11/2017 Overview (11/11/2017): Added automatically from request for surgery [id number] Encounters Date Type Department Care Team Description 05/19/2024 Orders Only [facility] Surgery [address] [place] [id number] Amy Ansari MD Multinodular goiter (Primary Dx) 05/18/2024 Telephone [facility] Orthopaedic Surgery [address] [facility] Advanced [facility] 12th [place] [address] [place] [address] Farnaz Amaro MD 05/12/2024 12:00 PM [employer] SALESPERSON Office Visit [facility] Orthopaedic Surgery [address] [facility] 2nd Floor [address] [place] [address] Farnaz Amaro MD Status post reverse arthroplasty of right shoulder (Primary Dx) 05/12/2024 11:22 AM [employer]OWERS SALESPERSON - 05/12/2024 11:59 PM [employer]OWERS SALESPERSON Hospital Encounter [facility] [address] [place] [address] Status post reverse arthroplasty of right shoulder Discharge Disposition: Discharge to home or self care 04/20/2024 8:47 AM FLOWERS SALESPERSON - 04/20/2024 11:59 PM [employer]OWERS SALESPERSON Hospital Encounter [facility] [address] [place] [address] Nontoxic multinodular goiter Discharge Disposition: Discharge to home or self care 04/06/2024 10:00 AM FLOWERS SALESPERSON - 04/06/2024 11:59 PM [employer]OWERS SALESPERSON Hospital Encounter [facility] [employer] [address] [place] [address] Discharge Disposition: Discharge to home or self care 03/15/2024 11:30 AM FLOWERS SALESPERSON Office Visit [facility] Orthopaedic Surgery [address] [facility] 12th [place] [address] [place] [address] Farnaz Amaro MD Status post reverse arthroplasty of right shoulder (Primary Dx) 03/15/2024 11:14 AM FLOWERS SALESPERSON - 03/15/2024 11:59 PM [employer]OWERS SALESPERSON Hospital Encounter [facility] [address] [place] [address] Status post reverse arthroplasty of right shoulder Discharge Disposition: Discharge to home or self care from Last 3 Months Surgical History Surgery Date Site/Laterality Comments COLECTOMY COLONOSCOPY ROTATOR CUFF REPAIR 03/24/2017 - 03/23/2018 Left HYDROCELE EXCISION / REPAIR 03/24/2022 - 03/23/2023 HERNIA REPAIR 03/24/2017 - 03/23/2018 Medical History Medical History Date Comments GERD (gastroesophageal reflux disease) Dyslipidemia Rotator cuff tear HTN (hypertension) Incisional hernia Ventral Sleep apnea Colon cancer (HCC) OA (osteoarthritis) Social History Tobacco Use Types Packs/Day Years Used Date Smoking Tobacco: Former Cigarettes 0.5 22 1 976 - 1998 Smokeless Tobacco: Never Tobacco Cessation:Counseling Given: Not Answered Alcohol Use Standard Drinks/Week Comments Not Asked 21 (1 standard drink = 0.6 oz pu re alcohol) AUDIT-C Answer Date Recorded Q1: How often do you have a drink containing alc ohol? 2-3 times a week 02/05/2024 Q2: How many drinks containi ng alcohol do you have on a typical day when you are drinking? 3 or 4 02/05/2024 Q3: How often do you have si x or more drinks on one occasion? Never 02/05/2024 Personal Safety Answer Date Recorded Have you ever been in or are you currently in a harmful physical or emotional relationship or is someone making you feel afraid or unsafe? Denies 02/05/2024 Sex and Gender Information Value Date Recorded Sex Assigned at Not on file Legal Sex Male 12:19 AM [employer]OWERS SALESPERSON Gender Identity Not on file Sexual Orientation Not on file Obstetrics History Last Filed Vital Signs Vital Sign Reading Time Taken Comments Blood Pressure 130/67 02/05/2024 11:45 AM [employer] SALESPERSON Pulse 61 02/05/2024 11:45 AM [employer] SALESPERSON Temperature 36.4 C (97.5 F) 02/05/2024 10:00 AM [employer] SALESPERSON Respiratory Rate 24 02/05/2024 11:4 5 AM FLOWERS SALESPERSON Oxygen Saturation 95% 02/05/2024 11: 45 AM FLOWERS SALESPERSON Inhaled Oxygen Concentration - - Weight 115.5 kg (254 lb 9.6 oz) 02/05/2024 5:34 AM [employer]OWERS SALESPERSON Height 180.3 cm (5' 11 ) 02/05/2024 5:34 AM [employer]OWERS SALESPERSON Body Mass Index 35.51 02/05/2024 5:34 AM [employer]OWERS SALESPERSON Plan of Treatment Health Maintenance Due Date Last Done Comments Colon Cancer Screening-Colonoscopy 1955 Depression Screening 1955 Hepatitis C Screening 1955 Prostate Cancer Screening-PSA 1955 DTaP/Tdap/Td Vaccine (1 - Tdap) 1968 Hepatitis B Screening 11/07/1975 Abdominal Aortic Aneurysm (A AA) Screen 2022 Well Visit 65+ 2022 Covid-19 Vaccine (7 - 2023-2 5 season) 2023 03/21/2023, 03/01/2022, 11/13/2021, Additional history exists Fall Risk Assessment 02/04/2025 02/05/2024 Zoster Vaccine Completed 04/09/2021, 02/06/2021 Pneumococcal vaccine 65+ Completed 12/03/2022 Influenza Vaccine Completed 01/23/2024, , 01/16/2022, Additional history exists Medical Devices Implanted Type Area Charter Pilot Device Identifier Shelf Expiration Date Model / Serial / Lot [employer] Ar-2324 Bcm Swivelock 4.75mm 24.5mm Self Punch Vent Shoulder [place] Suture - S0 - [id number] Implanted:Qty: 1 on 11/28/2017 by Nura Crisostomo MD at [facility] Screw Left: Shoulder [employer] 01/21/2019 AR-2324 BCM / 0 / [id number] [employer] Ar-2324 Bcm Swivelock 4.75mm 24.5mm Self Punch Vent Shoulder [place] Suture - S0 - [id number] Implanted:Qty: 1 on 11/28/2017 by Nura Crisostomo MD at [facility] Screw Left: Shoulder [employer] 06/22/2019 AR-2324 BCM / 0 / [id number] [employer] [id number] Corkscrew Fiberwire Tigerwire 5.5mm 14.7mm 2 [address] Mechanism Vent - S0 - [id number] Implanted:Qty: 2 on 11/28/2017 by Nura Crisostomo MD at [facility] Left: Shoulder [employer] 09/20/2018 AR-[id number] F / 0 / [id number] Turned On [employer] Aequalis Perform Reversed Od6.5 Mm L40 Mm Central Glenoid Screw Baseplate Nonsterile [id number] - [id number] Implanted:Qty: 1 on 02/05/2024 at [facility] Right: Shoulder Turned On [employer] [id number] / / Turned [employer] Screw Glenoid Locking Reverse Aequalis Perform 5.0x26mm Titanium [id number] - [id number] Implanted:Qty: 3 on 02/05/2024 at [facility] Right: Shoulder [employer] [id number] / / [employer] Screw Glenoid Locking Reverse Aequalis Perform 5.0x22mm Titanium Yla549 - [id number] Implanted:Qty: 1 on 02/05/2024 at [facility] Right: Shoulder [employer] [id number] / / [employer] Od25 Mm Full Wedge Augment Shoulder 15 D Baseplate Glenoid Rir737 - [id number] Implanted:Qty: 1 on 02/05/2024 at [facility] Right: Shoulder [employer] 12/03/2028 [id number] / [id number] / [employer] Tornier Aequalis Perform Od42 Mm Reverse Shoulder Standard Sphere Glenoid Rbo232 - [id number] Implanted:Qty: 1 on 02/05/2024 at [facility] Right: Shoulder [employer] 07/31/2028 [id number] / [id number] / [employer] Insert Perform 10 Deg Ret [id number] - [id number] Implanted:Qty: 1 on 02/05/2024 at [facility] Right: Shoulder [employer] 07/01/2028 [id number] / [id number] / [employer] Tray Stem Humeral Shoulder Reverse Long Tornier Perform [id number] Dwx3pl - [id number] Implanted:Qty: 1 on 02/05/2024 at [facility] Right: Shoulder [employer] 12/01/2028 [id number] / [id number] / Procedures Procedure Name Priority Date/Time Associated Diagnosis Comments XR SHOULDER RIGHT 2 OR MORE VIEWS Schedule Routine, Read Routine (OP Routine) 05/12/2024 11:28 AM [employer] SALESPERSON Status post reverse arthroplasty of right shoulder US GUIDED THYROID FINE NEEDLE ASPIRATION 1ST LESION Schedule Routine, Read Routine (OP Routine) 04/20/2024 10:01 AM [employer]OWERS SALESPERSON Nontoxic multinodular goiter CYTOLOGY Routine 04/20/2024 8:50 AM [employer]OWERS SALESPERSON Nontoxic multinodular goiter US TRANSFER OF OUTSIDE FILMS Routine 04/06/2024 10:00 AM FLOWERS SALESPERSON XR SHOULDER RIGHT 2 OR MORE VIEWS Schedule Routine, Read Routine (OP Routine) 03/15/2024 11:20 AM [employer]ERS SALESPERSON Status post reverse arthroplasty of right shoulder from Last 3 Months Results * XR Shoulder Right 2 or More Views (05/12/2024 11:28 AM FLOWERS SALESPERSON) Anatomical Region Laterality Modality Upper Extremities, Shoulder Right Comp uted Radiography 05/12/2024 11:3 2 AM FLOWERS SALESPERSON Impressions 05/12/2024 11:32 AM [employer]OWERS SALESPERSON Right reverse shoulder arthroplasty in expected position with the suggestion of inferior glenoid notching. Electronically signed by: Abimael Fields M.D. Narrative 05/12/2024 11:32 AM FLOWERS SALESPERSON EXAMINATION: XR SHOULDER RIGHT 2 OR MORE VIEWS HISTORY: Right shoulder arthroplasty COMPARISON: 03/15/2024 FINDINGS: Right reverse shoulder arthroplasty in unchanged, expected position. No periprosthetic fracture or component migration. Heterotopic ossification along the inferior glenoid with the suggestion of inferior glenoid notching. Mild acromioclavicular joint osteoarthritis. Procedure Note Abimael Fields MD - 05/12/2024 EXAMINATION: XR SHOULDER RIGHT 2 OR MORE VIEWS HISTORY: Right shoulder arthroplasty COMPARISON: 03/15/2024 FINDINGS: Right reverse shoulder arthroplasty in unchanged, expected position. No periprosthetic fracture or component migration. Heterotopic ossification along the inferior glenoid with the suggestion of inferior glenoid notching. Mild acromioclavicular joint osteoarthritis. IMPRESSION: Right reverse shoulder arthroplasty in expected position with the suggestion of inferior glenoid notching. Electronically signed by: Abimael Fields M.D. us Farnaz Amaro MD IMG XR PROCEDURES Fin al Result * US Guided Thyroid Fine Needle Aspiration 1st Lesion (04/20/2024 10:01 AM FLOWERS SALESPERSON) Anatomical Region Laterality Modality Thyroid N/A Ultrasound, Comp uted Radiography 04/20/2024 10:4 0 AM FLOWERS SALESPERSON Narrative 04/20/2024 10:44 AM FLOWERS SALESPERSON EXAM DESCRIPTION: US GUIDED THYROID FINE NEEDLE ASPIRATION 1ST LESION HISTORY: Lesion in the left lobe of the thyroid gland. PROCEDURE: The alternatives to, the benefits of and the risks of the procedure were discussed with the patient and informed written consent was obtained. The patient was placed in a supine position and the skin was prepped and draped in the usual sterile fashion. Local anesthesia was achieved with 2 cc of 1% lidocaine. Under sonographic guidance, a 25 gauge needle was inserted into the lesion and 3 fine needle aspirations were obtained. The patient tolerated the procedure well. There were no immediate complications. IMPRESSION: Successful sonographic guided fine needle aspiration of a lesion in the left lobe of the thyroid gland. EXAM DESCRIPTION: US GUIDED THYROID FINE NEEDLE ASPIRATION 1ST LESION HISTORY: Lesion in the right lobe of the thyroid gland. PROCEDURE: The alternatives to, the benefits of and the risks of the procedure were discussed with the patient and informed written consent was obtained. The patient was placed in a supine position and the skin was prepped and draped in the usual sterile fashion. Local anesthesia was achieved with 2 cc of 1% lidocaine. Under sonographic guidance, a 25 gauge needle was inserted into the lesion and 4 fine needle aspirations were obtained. This lesion was larger and more cystic. The patient tolerated the procedure well. There were no immediate complications. IMPRESSION: Successful sonographic guided fine needle aspiration of a lesion in the right lobe of the thyroid gland. THIS IS AN ELECTRONICALLY VERIFIED FINAL REPORT 04/20/2024 10:44 AM - Electronically signed by Gerardo FOLEY T: Report ID: [id number] Reading Location: [id number] Procedure Note Gerardo Go MD - 04/20/2024 EXAM DESCRIPTION: US GUIDED THYROID FINE NEEDLE ASPIRATION 1ST LESION HISTORY: Lesion in the left lobe of the thyroid gland. PROCEDURE: The alternatives to, the benefits of and the risks of theprocedure were discussed with the patient and informed written consent was obtained. The patient was placed in a supine position and the skin was prepped and draped in the usual sterile fashion. Local anesthesia was achieved with 2cc of 1% lidocaine. Under sonographic guidance, a 25 gauge needle wasinserted into the lesion and 3 fine needle aspirations were obtained. The patient tolerated the procedure well. There were no immediate complications. IMPRESSION: Successful sonographic guided fine needle aspiration of alesion in the left lobe of the thyroid gland. EXAM DESCRIPTION: US GUIDED THYROID FINE NEEDLE ASPIRATION 1ST LESION HISTORY: Lesion in the right lobe of the thyroid gland. PROCEDURE: The alternatives to, the benefits of and the risks of theprocedure were discussed with the patient and informed written consent was obtained.The patient was placed in a supine position and the skin was prepped anddraped in the usual sterile fashion. Local anesthesia was achieved with 2 cc of 1% lidocaine. Under sonographic guidance, a 25 gauge needle was inserted intothe lesion and 4 fine needle aspirations were obtained. This lesion waslarger and more cystic. The patient tolerated the procedure well. There were no immediate complications. IMPRESSION: Successful sonographic guided fine needle aspiration of alesion in the right lobe of the thyroid gland. THIS IS AN ELECTRONICALLY VERIFIED FINAL REPORT 04/20/2024 10:44 AM - Electronically signed by Gerardo Go M.D. SN T: Report ID: [id number] Reading Location: [place] [address] us Jorge A Brothers MD IMG US PROCEDURES Final R esult * Cytology (04/20/2024 8:50 AM FLOWERS SALESPERSON) Fluid (Thyroid Gland (Cytology)) 04/20/2024 8:51 AM FLOWERS SALESPERSON Narrative PATHOLOGY [facility] - 04/22/2024 4:31 PM FLOWERS SALESPERSON EPIC results best viewed via link to PDF [facility] [place] [address] Note to Patients: This report may contain a detailed description of human tissue sent by a health care provider to the laboratory for pathologic evaluation. The content of this report is essential for diagnosis and may provide important critical findings. This information may be unfamiliar to patients to review without a medical professional present. It is advised that the patient review this report in the presence of a health care provider who can answer questions and explain the details. CYTOPATHOLOGY REPORT FINAL Patient Name: PRAKASH BARRETT Gender: M : 1955 (Age: 68) [address]: [address] [place] [id number] [facility] #: [id number] Taken:04/20/2024 Received:04/20/2024 Reported: 04/22/2024 Patient Type: B ANCILLARY Service: UNKNOWN Location: Physician(s): Gerardo Go M.D. FINAL DIAGNOSIS A. Left thyroid nodule, fine needle aspiration: - Benign B. Right thyroid nodule, fine needle aspiration: - Benign sucr/04/22/2024 16:31 By this signature, I attest that the above diagnosis is based upon my personal examination of the slides(and/or other material indicated in the diagnosis). Gwen Pagan M.D. Report Electronically Reviewed and Signed Out By Gwen Pagan M.D. 04/22/2024 16:31:19 Saad Bartlett MS, CT([facility])[place] Gross Description A. Received are 6 smears (3slides are Diff Quik, 3 Slides are for Pap) and 1 container with 20mL of cyto rich red. 1Affirma. Please perform afirma testing if indicated. 3 Pap stained smear(s) and 3 Diff-Quik stained smear(s). 1 ThinPrep prepared from needle rinse tube. Aspirated by clinician. (LL) B.Received are 10 smears (5slides are Diff Quik, 5 Slides are for Pap) and 1 container with 20mL of cyto rich red. 1Affirma. Please perform afirma testing if indicated. 5 Pap stained smear(s) and 5 Diff-Quik stained smear(s). 1 ThinPrep prepared from needle rinse tube. Aspirated by clinician. (LL) Clinical Diagnosis and History The patient is a 68 year old male who presents with a right and left thyroid nodule Immediate Evaluation A. Left thyroid nodule; afirma if needed: Evaluation Episode 1 Overall Adequacy: Adequate for interpretation Total Evaluation Episodes: 1 B. Right thyroid nodule; afirma if needed: Evaluation Episode 1 Overall Adequacy: Inadequate for interpretation Evaluation Episode 2 Overall Adequacy: Inadequate for interpretation Evaluation Episode 3 Overall Adequacy: Inadequate for interpretation, few cells present Evaluation Episode 4 Overall Adequacy: Adequate for interpretation Total Evaluation Episodes: 4 Microscopic slide review and interpretation for this case was performed at [facility], Department of Surgical Pathology, [address] [facility] [id number] [place] [address] CLIA # [id number] REPORT IMAGES AND SCANNED DOCUMENTS, IF INCLUDED, ONLY VIEWABLE IN PDF VERSION OF REPORT The performance characteristics of some immunohistochemical stains, in-situ hybridization and fluorescence in-situ hybridization tests and immunophenotyping by flow cytometry cited in this report (if any) were determined by the Surgical Pathology and Flow Cytometry Departments at [facility] as part of an ongoing quality improvement specialist program and in compliance with federally mandated regulations drawn from the Clinical Laboratory Improvement Act of 1988 (CLIA '88). Some of these tests rely on the use of analyte specific reagents and are subject to specific labeling requirements by the US Food and Drug Administration. Such diagnostic tests may only be performed in a facility that is certified by the Department of Health and Human Services as a high complexity laboratory under CLIA '88. The FDA has determined that such clearance or approval is not necessary. This test is used for clinical purposes. It should not be regarded as investigational or for research. Nevertheless, federal rules concerning the medical use of analyte specific reagents require that the following disclaimer be attached to the report: This test was developed and its performance characteristics determined by the Surgical Pathology and Flow Cytometry Departments of [facility]. It has not been cleared or approved by the U. S. Food and Drug Administration. us Jorge A Brothers MD LAB CYTOLOGY ORDERABLES F inal Result PATHOLOGY [facility] * US Outside Reference (04/06/2024 10:00 AM FLOWERS SALESPERSON) Narrative GLORIA_[facility]QU[facility] - 04/08/2024 9:17 AM FLOWERS SALESPERSON This order has been auto-finalized and does not contain a result. us Provider Transcribed Order IMG US PROCEDURES Fin al Result RAD_CLARIO_[facility]_MHE * XR Shoulder Right 2 or More Views (03/15/2024 11:20 AM FLOWERS SALESPERSON) Anatomical Region Laterality Modality Upper Extremities, Shoulder Right Comp uted Radiography 03/15/2024 12:1 1 PM [employer]OWERS SALESPERSON Impressions 03/15/2024 12:11 PM [employer]OWERS SALESPERSON Unchanged reverse right shoulder arthroplasty in expected position. The radiology attending physician has personally reviewed this study, and had reviewed and/or edited this written report and agrees with it. Electronically signed by: Abimael Fields M.D. Narrative 03/15/2024 12:11 PM [employer]OWERS SALESPERSON EXAMINATION: XR SHOULDER RIGHT 2 OR MORE VIEWS HISTORY: Right shoulder arthroplasty follow-up COMPARISON: 02/18/2024 FINDINGS: Unchanged reverse total right glenohumeral arthroplasty in expected position. Intact instrumentation. No evidence of periprosthetic fracture or osteolysis. Mild right acromioclavicular joint osteoarthritis. Procedure Note Abimael Fields MD - 03/15/2024 EXAMINATION: XR SHOULDER RIGHT 2 OR MORE VIEWS HISTORY: Right shoulder arthroplasty follow-up COMPARISON: 02/18/2024 FINDINGS: Unchanged reverse total right glenohumeral arthroplasty in expected position. Intact instrumentation. No evidence of periprosthetic fracture or osteolysis. Mild right acromioclavicular joint osteoarthritis. IMPRESSION: Unchanged reverse right shoulder arthroplasty in expected position. The radiology attending physician has personally reviewed this study, and had reviewed and/or edited this written report and agrees with it. Electronically signed by: Abimael Fields M.D. Farnaz Amaro MD IMG XR PROCEDURES Fin al Result from Last 3 Months Insurance MEDICARE [facility] MEDICARE [facility] Advance Directives For more information, please contact: [phone] Documents on File Type Date Recorded Patient Steam [employer] anation ADVANCE DIRECTIVE 02/07/2024 12:40 AM [facility] OPERATOR-MEDICAL * Full Code (Latest Code Status on File) Date Activated Date Inactivated Comments 02/05/2024 9:35 AM 02/05/2024 4:43 PM Care Teams Director Employment Relationship Specialty Start Date End Date Jorge A Brothers MD [address] [place], [place] [id number] PCP - General Family Practice 05/20/24
--- OUTSIDE RECORDS SUMMARY | 2024-06-11 14:38 | XMS_ITS | Referral Summary ---
Author Organization [facility] Address [address] [place] [address] Care Team Providers Care City Letter Carrier Name Role Phone Jorge A Brothers MD Primary Care Provider [phone] Encounters Date Type Department Care Team Description 05/19/2024 Orders Only [facility] Floor [address] [place] [address] Amy Ansari MD Multinodular goiter (Primary Dx) 05/18/2024 Telephone [facility] [address] [place] [address] 12th [place] [address] [place] [address] Farnaz Amaro MD 05/12/2024 11:22 AM ACUTE SPECIALIST - 05/12/2024 11:59 PM ACUTE SPECIALIST Hospital Encounter [facility] [address] [place] [id number] Status post reverse arthroplasty of right shoulder Discharge Disposition: Discharge to home or self care 05/12/2024 12:00 PM ACUTE SPECIALIST Office Visit [facility] [address] [place] [address] 2nd Floor [address] [place] [phone] Farnaz Amaro MD Status post reverse arthroplasty of right shoulder (Primary Dx) 04/20/2024 8:47 AM ACUTE SPECIALIST - 04/20/2024 11:59 PM ACUTE SPECIALIST Hospital Encounter [facility] [address] [place] [address] Nontoxic multinodular goiter Discharge Disposition: Discharge to home or self care 04/06/2024 10:00 AM ACUTE SPECIALIST - 04/06/2024 11:59 PM ACUTE SPECIALIST Hospital Encounter [facility] [address] [facility] [place] [address] Discharge Disposition: Discharge to home or self care 03/15/2024 11:14 AM ACUTE SPECIALIST - 03/15/2024 11:59 PM ACUTE SPECIALIST Hospital Encounter [facility] [address] [place] [address] Status post reverse arthroplasty of right shoulder Discharge Disposition: Discharge to home or self care 03/15/2024 11:30 AM ACUTE SPECIALIST Office Visit [facility] [address] [facility] 12th [place] [address] [place] [address] Farnaz Amaro MD Status post reverse arthroplasty of right shoulder (Primary Dx) from Last 3 Months Allergies Active Allergy Reactions Criticality Noted Date [...] 2 (two) times a day Active omega 8-kqp-ruj-fish oil 1,200 (144-216) mg capsuleIndicatio ns:OTC/ Heart [...] (11/11/2017): Added automatically from request for surgery [id number] Tear of left rotator cuff 11/11/2017 Overview (11/11/2017): Added automatically from request for surgery [id number] Social History Tobacco Use Types Packs/Day Years [...] on file Legal Sex Male 12:19 AM ACUTE SPECIALIST Gender Identity Not on file Sexual Orientation Not on file Last Filed Vital Signs Vital Sign Reading Time Taken Comments Blood Pressure 130/67 02/05/2024 11:45 AM ACUTE SPECIALIST Pulse 61 02/05/2024 11:45 AM ACUTE SPECIALIST Temperature 36.4 C (97.5 F) 02/05/2024 10:00 AM ACUTE SPECIALIST Respiratory Rate 24 02/05/2024 11:4 5 AM ACUTE SPECIALIST Oxygen Saturation 95% 02/05/2024 11: 45 AM ACUTE SPECIALIST Inhaled Oxygen Concentration - - Weight 115.5 kg (254 lb 9.6 oz) 02/05/2024 5:34 AM ACUTE SPECIALIST Height 180.3 cm (5' 11 ) 02/05/2024 5:34 AM ACUTE SPECIALIST Body Mass Index 35.51 02/05/2024 5:34 AM ACUTE SPECIALIST Plan of Treatment Not on file Medical Devices Implanted Type Area System Administrator Device Identifier Shelf Expiration Date Model / Serial / Lot [employer] Ar-2324 Bcm Swivelock 4.75mm 24.5mm Self Punch Vent Shoulder [place]man Suture - S0 - [id number] Implanted:Qty: 1 on 11/28/2017 by Nura Crisostomo MD at [facility] Screw Left: Shoulder [employer] 01/21/2019 AR-2324 BCM / 0 / [id number] [employer] Ar-2324 Bcm Swivelock 4.75mm 24.5mm Self Punch Vent Shoulder [place]ullman Suture - S0 - [id number] Implanted:Qty: 1 on 11/28/2017 by Nura Crisostomo MD at [facility] Screw Left: Shoulder [employer] 06/22/2019 AR-2324 BCM / 0 / [id number] [employer] [id number] Corkscrew Fiberwire Tigerwire 5.5mm 14.7mm 2 [address] Mechanism Vent - S0 - [id number] Implanted:Qty: 2 on 11/28/2017 by Nura Crisostomo MD at [facility] Left: Shoulder [employer] 09/20/2018 AR-[id number] F / 0 / [id number] [employer] Aequalis Perform Reversed Od6.5 Mm L40 Mm Central Glenoid Screw Baseplate Nonsterile [id number] - [id number] Implanted:Qty: 1 on 02/05/2024 at [facility] Right: Shoulder [employer] [id number] / / [employer] Screw Glenoid Locking Reverse Aequalis Perform 5.0x26mm Titanium Dtz902 - [id number] Implanted:Qty: 3 on 02/05/2024 at [facility] Right: Shoulder [employer] [id number] / / [employer] Screw Glenoid Locking Reverse Aequalis Perform 5.0x22mm Titanium Omt927 - [id number] Implanted:Qty: 1 on 02/05/2024 at [facility] Right: Shoulder [employer] [id number] / / [employer] Od25 Mm Full Wedge Augment Shoulder 15 D Baseplate Glenoid Phb459 - [id number] Implanted:Qty: 1 on 02/05/2024 at [facility] Right: Shoulder [employer] 12/03/2028 [id number] / [id number] / [employer] Tornier Aequalis Perform Od42 Mm Reverse Shoulder Standard Sphere Glenoid Nqy997 - [id number] Implanted:Qty: 1 on 02/05/2024 at [facility] Right: Shoulder [employer] 07/31/2028 [id number] / [id number] / [employer] Insert Perform 10 Deg Ret Llz9880 [id number] - [id number] Implanted:Qty: 1 on 02/05/2024 at [facility] Right: Shoulder [employer] 07/01/2028 [id number] / [id number] / [employer] Tray Stem Humeral Shoulder Reverse Long Tornier Perform [id number] - [id number] Implanted:Qty: 1 on 02/05/2024 at [facility] Right: Shoulder [employer] 12/01/2028 [id number] / [id number] / Procedures Procedure Name Priority Date/Time Associated Diagnosis Comments XR SHOULDER RIGHT 2 OR MORE VIEWS Schedule Routine, Read Routine (OP Routine) 05/12/2024 11:28 AM ACUTE SPECIALIST Status post reverse arthroplasty of right shoulder US GUIDED THYROID FINE NEEDLE ASPIRATION 1ST LESION Schedule Routine, Read Routine (OP Routine) 04/20/2024 10:01 AM ACUTE SPECIALIST Nontoxic multinodular goiter CYTOLOGY Routine 04/20/2024 8:50 AM ACUTE SPECIALIST Nontoxic multinodular goiter US TRANSFER OF OUTSIDE FILMS Routine 04/06/2024 10:00 AM ACUTE SPECIALIST XR SHOULDER RIGHT 2 OR MORE VIEWS Schedule Routine, Read Routine (OP Routine) 03/15/2024 11:20 AM ACUTE SPECIALIST Status post reverse arthroplasty of right shoulder from Last 3 Months Results * XR Shoulder Right 2 or More Views (05/12/2024 11:28 AM ACUTE SPECIALIST) Anatomical Region Laterality Modality Upper Extremities, Shoulder Right Comp uted Radiography 05/12/2024 11:3 2 AM ACUTE SPECIALIST Impressions 05/12/2024 11:32 AM ACUTE SPECIALIST Right reverse shoulder arthroplasty in expected position with the suggestion of inferior glenoid notching. Electronically signed by: Abimael Fields M.D. Narrative 05/12/2024 11:32 AM ACUTE SPECIALIST EXAMINATION: XR SHOULDER RIGHT 2 OR MORE [...] Electronically signed by: Abimael Fields M.D. us Fanraz Amaro MD IMG XR PROCEDURES Fin al Result * US Guided Thyroid Fine Needle Aspiration 1st Lesion (04/20/2024 10:01 AM ACUTE SPECIALIST) Anatomical Region Laterality Modality Thyroid N/A Ultrasound, Comp uted Radiography 04/20/2024 10:4 0 AM ACUTE SPECIALIST Narrative 04/20/2024 10:44 AM ACUTE SPECIALIST EXAM DESCRIPTION: US GUIDED THYROID FINE NEEDLE [...] Gerardo Go M.D. SN T: Report ID: [id number] Reading Location: [id number] Procedure Note Gerardo Go MD - 04/20/2024 [...] Gerardo Go M.D. SN T: Report ID: [id number] Reading Location: [id number] us Jorge A Brothers MD IMG US PROCEDURES Final R esult * Cytology (04/20/2024 8:50 AM ACUTE SPECIALIST) Fluid (Thyroid Gland (Cytology)) 04/20/2024 8:51 AM ACUTE SPECIALIST Narrative PATHOLOGY [facility] - 04/22/2024 4:31 PM ACUTE SPECIALIST EPIC results best viewed via link to PDF [facility] [place] [address] Note to Patients: This report may contain [...] Gender: M : 1955 (Age: 68) Address: [address] [place], [place] [id number] Hospital #: [id number] Taken:04/20/2024 Received:04/20/2024 Reported: 04/22/2024 Patient Type: B [...] By Gwen Pagan M.D. 04/22/2024 16:31:19 Saad W. List MS, CT(ASCP)PA Gross Description A. Received are 6 smears [...] interpretation for this case was performed at [facility], Department of Surgical Pathology, [address] [facility], [id number], [place] [address] CLIA # [id number] REPORT IMAGES AND SCANNED DOCUMENTS, IF INCLUDED, ONLY VIEWABLE IN PDF VERSION OF REPORT The performance characteristics of some immunohistochemical stains, in-situ hybridization and fluorescence in-situ hybridization tests and immunophenotyping by flow cytometry cited in this report (if any) were determined by the Surgical Pathology and Flow Cytometry Departments at [facility] as part of an ongoing quality management nurse program and in compliance with federally mandated [...] Surgical Pathology and Flow Cytometry Departments of [facility]. It has not been cleared or approved by the [place]. [place]. Food and Drug Administration. Jorge A Brothers MD LAB CYTOLOGY ORDERABLES F inal Result Performing Organization Address [facility] Co de Phone Number PATHOLOGY [facility] * US Outside Reference (04/06/2024 10:00 AM ACUTE SPECIALIST) Narrative [email or web address] - 04/08/2024 9:17 AM ACUTE SPECIALIST This order has been auto-finalized and does not contain a result. us Provider Transcribed Order IMG US PROCEDURES Fin al Result Performing Organization Address [facility] de Phone Number [email or web address] * XR Shoulder Right 2 or More Views (03/15/2024 11:20 AM ACUTE SPECIALIST) Anatomical Region Laterality Modality Upper Extremities, Shoulder Right Comp uted Radiography 03/15/2024 12:1 1 PM ACUTE SPECIALIST Impressions 03/15/2024 12:11 PM ACUTE SPECIALIST Unchanged reverse right shoulder arthroplasty in expected position. The radiology attending physician has personally reviewed this study, and had reviewed and/or edited this written report and agrees with it. Electronically signed by: Abimael Fields M.D. Narrative 03/15/2024 12:11 PM ACUTE SPECIALIST EXAMINATION: XR SHOULDER RIGHT 2 OR MORE [...] Result from Last 3 Months Insurance MEDICARE [facility] MEDICARE AARP Advance Directives For more information, please contact: [phone] Documents on File Type Date Recorded Patient Oxygen Equipment Aide Expl anation ADVANCE DIRECTIVE 02/07/2024 12:40 AM [facility] * Full Code (Latest Code Status on File) Date Activated Date Inactivated Comments 02/05/2024 9:35 AM 02/05/2024 4:43 PM Care Teams City Letter Carrier Relationship Specialty Start Date End Date Jorge A Brothers MD [address] [place] [address] PCP - General Family Practice 05/20/24
--- OUTSIDE RECORDS SUMMARY | 2024-06-11 14:39 | XMS_ITS | Clinical Summary ---
Author Organization [facility] Address [address], [address] [address] Phone Care Team Providers Care [employer] Flatbed Driver Name Role Phone Jeramy Kirby Primary Care Provider [phone] Social History Tobacco Use Types Packs/Day Years Used Date Smoking Tobacco: Never Assessed Sex and Gender Information Value Date Recorded Sex Assigned at Not on file Legal Sex Male 10:36 PM CDT Gender Identity Not on file Sexual Orientation Not on file Plan of Treatment Health Maintenance Due Date Last Done Comments Hepatitis C Virus (HCV) Screening 1955 TdaP Immunization 1955 Cologuard 11/07/2007 Immunochemical Fecal Occult Blood 11/07/2007 Pneumococcal Immunization (5 0+ years) (1 of 1 - PCV) 11/07/2007 Zoster Immunization (1 of 2) 11/07/2007 PSA Discussion 2012 Colonoscopy 09/22/2022 09/23/2019, 02/15/2013 Colorectal Cancer Screening 09/22/2022 Influenza Immunization (#1) 2023 SARS-COV-2 Immunization ( - season) 2023 Respiratory Syncytial Virus (RSV) Immunization (Adult) (1 - 1-dose 75+ series) 2032 09/23/2019, 02/15/2013 Hepatitis B Immunization Aged Out No longer eligible based on patient's age to complete this topic Meningococcal Immunization (ACWY) Aged Out No longer eligible b ased on patient's age to complete this topic Rotavirus Immunization Aged Out No lo nger eligible based on patient's age to complete this topic Procedures Procedure Name Priority Date/Time Associated Diagnosis Comments COLONOSCOPY Routine 09/23/2019 from Last 3 Months or Most Recently Relevant to Health Maintenance Results * HM COLONOSCOPY (09/23/2019) Booker Chase DO PROCEDURE/MINOR SURGICAL ORDERA BLES Final Result from Last 3 Months or Most Recently Relevant to Health Maintenance Insurance [facility] Care Teams Cdl Company Flatbed Driver Relationship Specialty Start Date End Date Jeramy Kirby DO [address] [facility] [address] [place], [place] [id number] PCP - General Internal Medicine 09/30/19
--- NOTE | 2024-06-11 14:55 | ED.EXTPRO ---
HPI - Extremity Problem General Chief complaint: Extremity Problem,Nontraumatic <Bertha Andersen PA-C - Last Filed: 06/12/24 14:05> Stated complaint: Right knee needs to drained' <Bertha Andersen PA-C - Last Filed: 06/12/24 14:05> Time Seen by Provider: 06/11/24 17:55 <Bertha Andersen PA-C - Last Filed: 06/12/24 14:05> Focused HPI: 68-year-old male presents emergency department for pain to his right knee for several weeks, worsening yesterday after stepping up onto a curb. Patient states he has noticed some swelling to the knee. Pain is located in the lateral aspect of the knee. States it hurts worse with ambulation. GENERAL: Well-appearing, well-nourished, and in no acute distress. HEAD: Normocephalic, atraumatic. CHEST: Clear to auscultation. ?No respiratory distress. EXT: Mild knee joint effusion with no overlying erythema or warmth, no remarkable tenderness palpation, no tenderness remainder of extremity, DP pulse 2 +, sensation intact throughout, full active and passive range of motion of knee HEART: Regular rate and rhythm.? NEURO: ?Alert and oriented x3. Patient screened in triage and initial orders placed.? ?Additional care and disposition to be based upon?diagnostic testing and treatment. <Bertha Andersen PA-C - Last Filed: 06/12/24 14:05> Related Data Home medications: Home Medications ?Medication ?Instructions ?Recorded ?Confirmed ?Last Taken ?Type coenzyme Q10 100 mg capsule 100 mg PO DAILY 10/28/22 02/24/24 Unknown History (CoQ-10) saw palmetto 160 mg capsule 160 mg PO DAILY 04/01/23 02/24/24 Unknown History fiber 4 cap PO DAILY 05/20/23 02/24/24 Unknown History omega 2-lwp-sww-fish oil 300 1 cap PO BID 05/20/23 02/24/24 Unknown History mg-1,000 mg capsule (Fish Oil) <ALBERT Wolfe Last Filed: 06/12/24 14:05> Allergies/Adverse reactions: Allergies Allergy/AdvReac Type Severity Reaction Status Date / Time lisinopril Allergy Mild Hives Verified 06/11/24 14:21 <Bertha Andersen PA-C - Last Filed: 06/12/24 14:05> Review of Systems Review of Systems: All systems reviewed & are unremarkable except as noted in HPI and below <Krystal Caceres APRN - Last Filed: 06/11/24 19:38> [facility] Past Medical History Medical History: Medical History BPH (benign prostatic hyperplasia) Obesity Essential (primary) hypertension History of colon cancer EFE on CPAP <Bertha Andersen PA-C - Last Filed: 06/12/24 14:05> Surgical History Surgical History: Surgical History H/O colonoscopy H/O hernia repair History of colon resection H/O rotator cuff surgery <Bertha Andersen PA-C - Last Filed: 06/12/24 14:05> Family History Family History: Family History Father Family history of malignant neoplasm Patient's father is Mother Family history of dementia Family history of malignant neoplasm <Bertha Andersen PA-C - Last Filed: 06/12/24 14:05> Social History Social History: Social History Smoking packs per day: 0.75 Smoking cigarettes per day: 15.0 Years smoked: 10 Smoking pack-years: 7.50 Smoking status: Former smoker Tobacco type: cigarettes Smoking end date: 03/24/19 Additional smoking assessment comments: cigarettes 1 pp week 5 years Alcohol intake: current Drinks per week: 5 Substance use: never Substance use type: does not use Do You Feel Safe in your Home?: Yes Lack of Transportation: No Lack of Food: Never True Current Housing: I Have Housing Concerned About Future Housing: No Difficulty Paying Gas/Electric Bills: No Difficulty Paying for Meds: No Currently Unemployed: No Education: High School Diploma/GED Difficulty w/ Childcare or Family Care: No Living arrangements: with family Additional living arrangements comments: With Occupation/Education: retired Gender identity (if verbalized by the patient): Male Sexual Orientation (if Verbalized by the Patient): Straight or Heterosexual Spiritual care concerns: No Agree to blood products: Yes <Bertha Andersen PA-C - Last Filed: 06/12/24 14:05> Exam Narrative: GENERAL: Well-appearing, well-nourished, and in no acute distress. HEAD: Normocephalic, atraumatic. CHEST: Clear to auscultation. ?No respiratory distress. EXT: Mild knee joint effusion with no overlying erythema or warmth, no remarkable tenderness palpation, no tenderness remainder of extremity, DP pulse 2 +, sensation intact throughout, full active and passive range of motion of knee HEART: Regular rate and rhythm.? NEURO: ?Alert and oriented x3. <Krystal Caceres, BETHANIE - Last Filed: 06/11/24 19:38> Course Vital Signs Vital signs: Vital Signs Temperature 97.7 F 06/11/24 14:33 Pulse Rate 64 06/11/24 14:33 Respiratory Rate 16 06/11/24 14:33 Blood Pressure 157/59 H 06/11/24 14:33 Pulse Oximetry 96 06/11/24 14:33 Temperature 97.7 F 06/11/24 14:33 Pulse Rate 66 06/11/24 18:55 Respiratory Rate 16 06/11/24 18:55 Blood Pressure 142/85 H 06/11/24 18:55 Pulse Oximetry 98 06/11/24 18:55 <Bertha Andersen PA-C - Last Filed: 06/12/24 14:05> Vital Signs Temperature 97.7 F 06/11/24 14:33 Pulse Rate 64 06/11/24 14:33 Respiratory Rate 16 06/11/24 14:33 Blood Pressure 157/59 H 06/11/24 14:33 Pulse Oximetry 96 06/11/24 14:33 Temperature 97.7 F 06/11/24 14:33 Pulse Rate 66 06/11/24 18:55 Respiratory Rate 16 06/11/24 18:55 Blood Pressure 142/85 H 06/11/24 18:55 Pulse Oximetry 98 06/11/24 18:55 <Krystalmaximus Caceres APRN - Last Filed: 06/11/24 19:38> MDM - Extremity (Nontraumatic) MDM Narrative Medical decision making narrative: 68-year-old male presents emergency department for pain to his right knee for several weeks, worsening yesterday after stepping up onto a curb. Patient states he has noticed some swelling to the knee. Pain is located in the lateral aspect of the knee. States it hurts worse with ambulation. Labs Ordered: None necessary Imaging Ordered: Right knee x-ray, right tib-fib x-ray Medications Ordered: Toradol 30 mg IM Results: Patient's right knee x-ray indicates No acute osseous abnormality right knee. Minimal fluid in the suprapatellar bursa. Spinal synovial area and proximal fibula. Right tib-fib x-ray indicates BONES: No acute fracture or dislocation. Healing fracture in the proximal one third of the fibula. JOINT SPACES: Normal. SOFT TISSUES: Normal. Calcaneal spur. IMPRESSION: No acute osseous abnormality right leg. Diagnosis: Right knee joint fluid Consults: orthopedics (outpatient) Patient Education/Shared MDM: Results of xray shared with patient. It was explained to pt that his knee would not be drained here in the ER. Pt became angry and said, Well then why did I even come here if you're not going to drain it? I called orthopedics and they can't see me until July. It was explained to pt that he could be given anti-inflammatories and his R knee joint could be wrapped with an DEMETRIUS wrap and reports I can just wrap it myself at home. He declined medication administration. Patient strongly advised to follow-up with orthopedic surgery as soon as possible. He will be discharged home with a prescription for Naproxen BID. Strict return precautions provided. Patient verbalized understanding is in agreement with plan. Vital signs stable at time of discharge. All questions answered. <Krystal Caceres APRN - Last Filed: 06/11/24 19:38> Differential Diagnosis Differential diagnosis: Likely gout, lower extremity edema and other (R knee synovial fluid, R joint pain) <Krystal Caceres APRN - Last Filed: 06/11/24 19:38> Discharge Plan Discharge Clinical Impression: Right leg swelling, Tender knee joint, Knee joint effusion <Bertha Andersen PA-C - Last Filed: 06/12/24 14:05> Patient Disposition: Home, Self-Care <ALBERT Wolfe Last Filed: 06/12/24 14:05> Condition: Stable <ALBERT Wolfe Last Filed: 06/12/24 14:05> Instructions: Antibiotic Form, Swollen Knee Joint (ED), Knee Pain (ED), P.R.I.C.E. Treatment (ED) <ALBERT Wolfe Last Filed: 06/12/24 14:05> Additional Instructions: Please return to the ER with any worsening symptoms. Follow-up with orthopedic surgery as soon as possible. Take all medications as prescribed, including regularly scheduled medications. <ALBERT Wolfe Last Filed: 06/12/24 14:05> Patient Language: Uzbek <ALBERT Wolfe Last Filed: 06/12/24 14:05> Prescriptions: New naproxen 500 mg tablet 500 mg PO BID PRN (Reason: pain) Qty: 30 0RF No Action coenzyme Q10 [CoQ-10] 100 mg Capsule 100 mg PO DAILY saw palmetto 160 mg capsule 160 mg PO DAILY Rx Instructions: give with meal/snack fiber Capsule 4 cap PO DAILY omega 5-dic-jko-fish oil [Fish Oil] 300-1,000 mg capsule 1 cap PO BID losartan 100 mg tablet See Rx Instructions .ROUTE .COMPLEX Qty: 90 1RF Dose Instruction: TAKE 1 TABLET DAILY Rx Instructions: TAKE 1 TABLET DAILY amlodipine 10 mg tablet See Rx Instructions .ROUTE .COMPLEX Qty: 90 3RF Dose Instruction: TAKE 1 TABLET DAILY Rx Instructions: TAKE 1 TABLET DAILY metoprolol succinate 25 mg tablet extended release 24 hr See Rx Instructions .ROUTE .COMPLEX Qty: 90 3RF Dose Instruction: TAKE 1 TABLET DAILY Rx Instructions: TAKE 1 TABLET DAILY doxazosin 8 mg tablet See Rx Instructions .ROUTE .COMPLEX Qty: 90 3RF Dose Instruction: TAKE 1 TABLET DAILY Rx Instructions: TAKE 1 TABLET DAILY rosuvastatin 10 mg tablet See Rx Instructions .ROUTE .COMPLEX Qty: 90 3RF Dose Instruction: TAKE 1 TABLET DAILY Rx Instructions: TAKE 1 TABLET DAILY omeprazole 20 mg capsule,delayed release(DR/EC) See Rx Instructions .ROUTE .COMPLEX Qty: 180 3RF Dose Instruction: TAKE 1 CAPSULE TWICE A DAY BEFORE MEALS Rx Instructions: TAKE 1 CAPSULE TWICE A DAY BEFORE MEALS hydroxyzine HCl 25 mg tablet 25 mg PO .COMPLEX PRN (Reason: itching) Qty: 240 0RF Rx Instructions: take 1-2 tablets four times daily as needed for itching <Bertha Andersen PA-C - Last Filed: 06/12/24 14:05> Follow-up/Referrals: Jeramy Kirby DO [Primary Care Provider] - Brandan Maxwell MD [Physician] - (orthopedic surgery ) <Bertha Andersen PA-C - Last Filed: 06/12/24 14:05> Time of Disposition: 19:33 <Bertha Andersen PA-C - Last Filed: 06/12/24 14:05> 19:33 <Krystal Caceres APRN - Last Filed: 06/11/24 19:38>
--- OUTSIDE RECORDS SUMMARY | 2024-06-11 18:29 | XMS_ITS | Clinical Summary ---
Author Organization [facility] Address [address] [place] [address] Care Team Providers Care Back Shoe Operator Name Role Phone Unavailable Primary Care Provider Unavailabl e Source Comments [facility],non-owned Affiliates and Associated Physician Practices is amultiple site organization consisting of ambulatory clinics and hospital sitesin [place], [place], [place] and [place]. This disclosure is being madepursuant to the Care Everywhere program and may not contain all information available regarding this patient. Last updated 17.[facility] [employer] Social History Tobacco Use Types Packs/Day Years [...]
--- OUTSIDE RECORDS SUMMARY | 2024-06-11 18:29 | XMS_ITS | Encounter Summary ---
Author Organization [facility] Address [address] [place] [address] Care Team Providers Care Qc Chemist Name Role Phone Unavailable Primary Care Provider Unavailabl e Encounter Details Date Type Department Care Team (Late st Contact Info) Description 12/18/2018 Lab Requisition [facility] DermPath Lab [address] [place] [address] Jackie Alexander MD [address] [facility] 3[address] DEPT OF [place] [address] Social History Tobacco Use Types Packs/Day Years [...] AM CDT) Case Report Dermatopathology Report Case: [id number] Authorizing Provider: Jackie Alexander MD Collected: 12/17/2018 12:00 AM Ordering Location: [facility] DermPath Lab Received: 12/18/2018 06:54 AM Pathologist: [...] The specimen consists of a shave measuring 1g3f8mb. Jar 0. 1:20 PM CDT DERMATOPATHOLOGY LABORATORY [...] characteristic determined by the Dermatopathology Laboratory at [facility], directed by Dr. Karine Whitaker. These tests need not be, and therefore are not, approved by the [place] Food and Drug Administration. The tests are used for clinical purposes. Billing Codes Specimen Charges Stain Charges 70304 1 1:20 PM CDT DERMATOPATHOLOGY LABORATORY Embedded Images 1:20 PM CDT DERMATOPATHOLOGY LABORATORY Pathology/Cytolog y TISSUE SPECIMEN FROM SKIN / Unknown 12/17/2018 12/18/2018 6:54 AM CDT Jackie Alexander MD LAB - PATHOLOGY/CYTO LOGY ORDERABLES DERMATOPATHOLOGY LABORATORY [facility] - Department of Dermatology [address], 5th [place] [address], [facility] [phone] documented in this encounter Visit Diagnoses Not on filedocumented in this encounter
--- OUTSIDE RECORDS SUMMARY | 2024-06-11 18:29 | XMS_ITS | Referral Summary ---
Author Organization [facility] Address [address] [place] [address] Care Team Providers Care Powertrain Control Systems Engineer Name Role Phone Jorge A Brothers MD Primary Care Provider [phone] Encounters Date Type Department Care Team Description 05/19/2024 Orders Only [facility] Surgery [facility] Floor [address] [place] [address] Amy Ansari MD Multinodular goiter (Primary Dx) 05/18/2024 Telephone [facility] Orthopaedic Surgery [address] [place] [address] 12th [place] [address] [place] [address] Farnaz Amaro MD 05/12/2024 11:22 AM HEARING SCREENER - 05/12/2024 11:59 PM HEARING SCREENER Hospital Encounter [facility] [address] [place] [address] Status post reverse arthroplasty of right shoulder Discharge Disposition: Discharge to home or self care 05/12/2024 12:00 PM HEARING SCREENER Office Visit [facility] Orthopaedic Surgery [address] [place] [address] 2nd Floor [address] [place] [phone] Farnaz Amaro MD Status post reverse arthroplasty of right shoulder (Primary Dx) 04/20/2024 8:47 AM HEARING SCREENER - 04/20/2024 11:59 PM HEARING SCREENER Hospital Encounter [facility] [address] [place] [address] Nontoxic multinodular goiter Discharge Disposition: Discharge to home or self care 04/06/2024 10:00 AM HEARING SCREENER - 04/06/2024 11:59 PM HEARING SCREENER Hospital Encounter [facility] [employer] [address] [facility] [place] [address] Discharge Disposition: Discharge to home or self care 03/15/2024 11:14 AM HEARING SCREENER - 03/15/2024 11:59 PM HEARING SCREENER Hospital Encounter [facility] [address] [place] [address] Status post reverse arthroplasty of right shoulder Discharge Disposition: Discharge to home or self care 03/15/2024 11:30 AM HEARING SCREENER Office Visit [facility] Orthopaedic Surgery [address] [facility] 12th [place] [address] [place] [address] Faranz Amaro MD Status post reverse arthroplasty of [...] 2 (two) times a day Active omega 3-dut-zpj-fish oil 1,200 (144-216) mg capsuleIndicatio ns:OTC/ Heart [...] (11/11/2017): Added automatically from request for surgery [id number] Tear of left rotator cuff 11/11/2017 Overview (11/11/2017): Added automatically from request for surgery [id number] Social History Tobacco Use Types Packs/Day Years [...] on file Legal Sex Male 12:19 AM HEARING SCREENER Gender Identity Not on file Sexual Orientation Not on file Last Filed Vital Signs Vital Sign Reading Time Taken Comments Blood Pressure 130/67 02/05/2024 11:45 AM HEARING SCREENER Pulse 61 02/05/2024 11:45 AM HEARING SCREENER Temperature 36.4 C (97.5 F) 02/05/2024 10:00 AM HEARING SCREENER Respiratory Rate 24 02/05/2024 11:4 5 AM HEARING SCREENER Oxygen Saturation 95% 02/05/2024 11: 45 AM HEARING SCREENER Inhaled Oxygen Concentration - - Weight 115.5 kg (254 lb 9.6 oz) 02/05/2024 5:34 AM HEARING SCREENER Height 180.3 cm (5' 11 ) 02/05/2024 5:34 AM HEARING SCREENER Body Mass Index 35.51 02/05/2024 5:34 AM HEARING SCREENER Plan of Treatment Not on file Medical Devices Implanted Type Area Bridge Operator Device Identifier Shelf Expiration Date Model / Serial / Lot [employer] Ar-2324 Bcm Swivelock 4.75mm 24.5mm Self Punch Vent Shoulder Pacific Suture - S0 - [id number] Implanted:Qty: 1 on 11/28/2017 by Nura Crisostomo MD at [facility] Screw Left: Shoulder [employer] 01/21/2019 AR-2324 BCM / 0 / [id number] [employer] Ar-2324 Bcm Swivelock 4.75mm 24.5mm Self Punch Vent Shoulder Pacific Suture - S0 - [id number] Implanted:Qty: 1 on 11/28/2017 by Nura Crisostomo MD at [facility] Screw Left: Shoulder [employer] 06/22/2019 AR-2324 BCM / 0 / [id number] [employer] Ar-[id number] Corkscrew Fiberwire Tigerwire 5.5mm 14.7mm 2 [address] Mechanism Vent - S0 - [id number] Implanted:Qty: 2 on 11/28/2017 by Nura Crisostomo MD at [facility] Left: Shoulder [employer] 09/20/2018 AR-[id number] F / 0 / [id number] Performable [employer] Aequalis Perform Reversed Od6.5 Mm L40 Mm Central Glenoid Screw Baseplate Nonsterile Xmy351 - [id number] Implanted:Qty: 1 on 02/05/2024 at [facility] Right: Shoulder [employer] [id number] / / [employer] Screw Glenoid Locking Reverse Aequalis Perform 5.0x26mm Titanium Rng729 - [id number] Implanted:Qty: 3 on 02/05/2024 at [facility] Right: Shoulder [employer] [id number] / / [employer] Screw Glenoid Locking Reverse Aequalis Perform 5.0x22mm Titanium Lkl503 - [id number] Implanted:Qty: 1 on 02/05/2024 at [facility] Right: Shoulder [employer] [id number] / / [employer] Od25 Mm Full Wedge Augment Shoulder 15 D Baseplate Glenoid Pol452 - [id number] Implanted:Qty: 1 on 02/05/2024 at [facility] Right: Shoulder [employer] 12/03/2028 PWJ288 / [id number] / [employer] Tornier Aequalis Perform Od42 Mm Reverse Shoulder Standard Sphere Glenoid Okz779 - [id number] Implanted:Qty: 1 on 02/05/2024 at [facility] Right: Shoulder [employer] 07/31/2028 [id number] / [id number] / [employer] Insert Perform 10 Deg Ret [id number] - [id number] Implanted:Qty: 1 on 02/05/2024 at [facility] Right: Shoulder [employer] Inc 07/01/2028 [id number] / [id number] / [employer] Tray Stem Humeral Shoulder Reverse Long Tornier Perform [id number] Dwx3pl - [id number] Implanted:Qty: 1 on 02/05/2024 at [facility] Right: Shoulder [employer] 12/01/2028 [id number] / [id number] / Procedures Procedure Name Priority Date/Time Associated Diagnosis Comments XR SHOULDER RIGHT 2 OR MORE VIEWS Schedule Routine, Read Routine (OP Routine) 05/12/2024 11:28 AM HEARING SCREENER Status post reverse arthroplasty of right shoulder US GUIDED THYROID FINE NEEDLE ASPIRATION 1ST LESION Schedule Routine, Read Routine (OP Routine) 04/20/2024 10:01 AM HEARING SCREENER Nontoxic multinodular goiter CYTOLOGY Routine 04/20/2024 8:50 AM HEARING SCREENER Nontoxic multinodular goiter US TRANSFER OF OUTSIDE FILMS Routine 04/06/2024 10:00 AM HEARING SCREENER XR SHOULDER RIGHT 2 OR MORE VIEWS Schedule Routine, Read Routine (OP Routine) 03/15/2024 11:20 AM HEARING SCREENER Status post reverse arthroplasty of right shoulder from Last 3 Months Results * XR Shoulder Right 2 or More Views (05/12/2024 11:28 AM HEARING SCREENER) Anatomical Region Laterality Modality Upper Extremities, Shoulder Right Comp uted Radiography 05/12/2024 11:3 2 AM HEARING SCREENER Impressions 05/12/2024 11:32 AM HEARING SCREENER Right reverse shoulder arthroplasty in expected position with the suggestion of inferior glenoid notching. Electronically signed by: Abimael Fields M.D. Narrative 05/12/2024 11:32 AM HEARING SCREENER EXAMINATION: XR SHOULDER RIGHT 2 OR MORE [...] Needle Aspiration 1st Lesion (04/20/2024 10:01 AM HEARING SCREENER) Anatomical Region Laterality Modality Thyroid N/A Ultrasound, Comp uted Radiography 04/20/2024 10:4 0 AM HEARING SCREENER Narrative 04/20/2024 10:44 AM HEARING SCREENER EXAM DESCRIPTION: US GUIDED THYROID FINE NEEDLE [...] Gerardo Go M.D. SN T: Report ID: [id number] Reading Location: [id number] Procedure Note Gerardo Go MD - 04/20/2024 [...] Gerardo Go M.D. SN T: Report ID: [id number] Reading Location: [id number] us Jorge A Brothers MD IMG US PROCEDURES Final R esult * Cytology (04/20/2024 8:50 AM HEARING SCREENER) Fluid (Thyroid Gland (Cytology)) 04/20/2024 8:51 AM HEARING SCREENER Narrative PATHOLOGY [facility] - 04/22/2024 4:31 PM HEARING SCREENER EPIC results best viewed via link to PDF [facility] [place] [address] Note to Patients: This report may contain [...] Gender: M : 1955 (Age: 68) Address: [address] [place], [place] [address] Hospital #: [id number] Taken:04/20/2024 Received:04/20/2024 Reported: 04/22/2024 Patient Type: B [...] interpretation for this case was performed at [facility], Department of Surgical Pathology, [address] [facility], [id number], [place] [address] CLIA # [id number] REPORT IMAGES AND SCANNED DOCUMENTS, IF INCLUDED, ONLY VIEWABLE IN PDF VERSION OF REPORT The performance characteristics of some immunohistochemical stains, in-situ hybridization and fluorescence in-situ hybridization tests and immunophenotyping by flow cytometry cited in this report (if any) were determined by the Surgical Pathology and Flow Cytometry Departments at [facility] as part of an ongoing quality technician program and in compliance with federally mandated [...] Surgical Pathology and Flow Cytometry Departments of [facility]. It has not been cleared or approved by the [place]. Food and Drug Administration. Jorge A Brothers MD LAB CYTOLOGY ORDERABLES F inal Result Performing Organization Address [facility] Co de Phone Number PATHOLOGY [facility] * US Outside Reference (04/06/2024 10:00 AM HEARING SCREENER) Narrative [email or web address] - 04/08/2024 9:17 AM HEARING SCREENER This order has been auto-finalized and does not contain a result. us Provider Transcribed Order IMG US PROCEDURES Fin al Result Performing Organization Address [facility] de Phone Number [email or web address] * XR Shoulder Right 2 or More Views (03/15/2024 11:20 AM HEARING SCREENER) Anatomical Region Laterality Modality Upper Extremities, Shoulder Right Comp uted Radiography 03/15/2024 12:1 1 PM HEARING SCREENER Impressions 03/15/2024 12:11 PM HEARING SCREENER Unchanged reverse right shoulder arthroplasty in expected position. The radiology attending physician has personally reviewed this study, and had reviewed and/or edited this written report and agrees with it. Electronically signed by: Abimael Fields M.D. Narrative 03/15/2024 12:11 PM HEARING SCREENER EXAMINATION: XR SHOULDER RIGHT 2 OR MORE [...] Result from Last 3 Months Insurance MEDICARE [facility] MEDICARE AARP Advance Directives For more information, please contact: [phone] Documents on File Type Date Recorded Patient Sulfur Chloride Operator Expl anation ADVANCE DIRECTIVE 02/07/2024 12:40 AM [facility] ER OF RAG CUTTING MACHINE TENDER-MEDICAL * Full Code (Latest Code Status on File) Date Activated Date Inactivated Comments 02/05/2024 9:35 AM 02/05/2024 4:43 PM Care Teams Powertrain Control Systems Engineer Relationship Specialty Start Date End Date Jorge A Brothers MD [address] [place] [address] PCP - General Family Practice 05/20/24
--- OUTSIDE RECORDS SUMMARY | 2024-06-11 18:29 | XMS_ITS | Clinical Summary ---
Author Organization [facility] Address [address] [place] [address] Care Team Providers Care Food Sampler Name Role Phone Jorge A Brothers MD Primary Care Provider [phone] Allergies Active Allergy Reactions Criticality Noted Date [...] 2 (two) times a day Active omega 2-tdb-yzr-fish oil 1,200 (144-216) mg capsuleIndicatio ns:OTC/ Heart [...] (11/11/2017): Added automatically from request for surgery [id number] Tear of left rotator cuff 11/11/2017 Overview (11/11/2017): Added automatically from request for surgery [id number] Encounters Date Type Department Care Team Description 05/19/2024 Orders Only [facility] Surgery [address] [facility] Floor 5 [place] [id number] Amy Ansari MD Multinodular goiter (Primary Dx) 05/18/2024 Telephone [facility] Orthopaedic Surgery [address] [facility] 12th [place] [address] [place] [address] Farnaz Amaro MD 05/12/2024 12:00 PM ECONOMICS LECTURER Office Visit [facility] Orthopaedic Surgery [address] [facility] 2nd Floor [address] [place] [address] Farnaz Amaro MD Status post reverse arthroplasty of right shoulder (Primary Dx) 05/12/2024 11:22 AM ECONOMICS LECTURER - 05/12/2024 11:59 PM ECONOMICS LECTURER Hospital Encounter [facility] at the Orthopedic [facility] [address] [place] [address] Status post reverse arthroplasty of right shoulder Discharge Disposition: Discharge to home or self care 04/20/2024 8:47 AM ECONOMICS LECTURER - 04/20/2024 11:59 PM ECONOMICS LECTURER Hospital Encounter [facility] [address] [place] [address] Nontoxic multinodular goiter Discharge Disposition: Discharge to home or self care 04/06/2024 10:00 AM ECONOMICS LECTURER - 04/06/2024 11:59 PM ECONOMICS LECTURER Hospital Encounter [facility] [employer] [address] [place] [address] Discharge Disposition: Discharge to home or self care 03/15/2024 11:30 AM ECONOMICS LECTURER Office Visit [facility] Orthopaedic Surgery [address] [facility] 12th [place] [address] [place] [address] Farnaz Amaro MD Status post reverse arthroplasty of right shoulder (Primary Dx) 03/15/2024 11:14 AM ECONOMICS LECTURER - 03/15/2024 11:59 PM ECONOMICS LECTURER Hospital Encounter [facility] [address] [place] [address] Status post reverse arthroplasty of right shoulder [...] on file Legal Sex Male 12:19 AM ECONOMICS LECTURER Gender Identity Not on file Sexual Orientation Not on file Obstetrics History Last Filed Vital Signs Vital Sign Reading Time Taken Comments Blood Pressure 130/67 02/05/2024 11:45 AM ECONOMICS LECTURER Pulse 61 02/05/2024 11:45 AM ECONOMICS LECTURER Temperature 36.4 C (97.5 F) 02/05/2024 10:00 AM ECONOMICS LECTURER Respiratory Rate 24 02/05/2024 11:4 5 AM ECONOMICS LECTURER Oxygen Saturation 95% 02/05/2024 11: 45 AM ECONOMICS LECTURER Inhaled Oxygen Concentration - - Weight 115.5 kg (254 lb 9.6 oz) 02/05/2024 5:34 AM ECONOMICS LECTURER Height 180.3 cm (5' 11 ) 02/05/2024 5:34 AM ECONOMICS LECTURER Body Mass Index 35.51 02/05/2024 5:34 AM ECONOMICS LECTURER Plan of Treatment Health Maintenance Due Date [...] history exists Medical Devices Implanted Type Area Loan Servicing Representative Device Identifier Shelf Expiration Date Model / Serial / Lot Arthrex Inc Ar-2324 Bcm Swivelock 4.75mm 24.5mm Self Punch Vent Shoulder [place] Suture - S0 - [id number] Implanted:Qty: 1 on 11/28/2017 by Nura Crisostomo MD at [facility] Screw Left: Shoulder Arthrex Inc 01/21/2019 AR-2324 BCM / 0 / [id number] Arthrex Inc Ar-2324 Bcm Swivelock 4.75mm 24.5mm Self Punch Vent Shoulder [place] Suture - S0 - [id number] Implanted:Qty: 1 on 11/28/2017 by Nura Crisostomo MD at [facility] Advanced [facility] Screw Left: Shoulder Ar[employer]rex Inc 06/22/2019 AR-2324 BCM / 0 / [id number] Arthrex Inc Ar-1927bcf Corkscrew Fiberwire Tigerwire 5.5mm 14.7mm 2 [address] Mechanism Vent - S0 - [id number] Implanted:Qty: 2 on 11/28/2017 by Nura Crisostomo MD at [facility] Left: Shoulder Ar[employer]rex Inc 09/20/2018 AR-1927BC F / 0 / [id number] [employer] Aequalis Perform Reversed Od6.5 Mm L40 Mm Central Glenoid Screw Baseplate Nonsterile Vsb976 - [id number] Implanted:Qty: 1 on 02/05/2024 at [facility] Right: Shoulder [employer] [id number] / / [employer] Screw Glenoid Locking Reverse Aequalis Perform 5.0x26mm Titanium Yuv755 - [id number] Implanted:Qty: 3 on 02/05/2024 at [facility] Right: Shoulder [employer] Inc [id number] / / [employer] Screw Glenoid Locking Reverse Aequalis Perform 5.0x22mm Titanium Png094 - [id number] Implanted:Qty: 1 on 02/05/2024 at [facility] Right: Shoulder [employer] [id number] / / [employer] Od25 Mm Full Wedge Augment Shoulder 15 D Baseplate Glenoid Mpk618 - [id number] Implanted:Qty: 1 on 02/05/2024 at [facility] Right: Shoulder [employer] 12/03/2028 VZH626 / [id number] / [employer] Inc Tornier Aequalis Perform Od42 Mm Reverse Shoulder Standard Sphere Glenoid Lez860 - [id number] Implanted:Qty: 1 on 02/05/2024 at [facility] Right: Shoulder [employer] 07/31/2028 CUY168 / [id number] / [employer] Insert Perform 10 Deg Ret Ifw7253 [id number] - [id number] Implanted:Qty: 1 on 02/05/2024 at [facility] Right: Shoulder [employer] 07/01/2028 [id number] / [id number] / [employer] Tray Stem Humeral Shoulder Reverse Long Tornier Perform 34c54l328ts Dwx3pl - [id number] Implanted:Qty: 1 on 02/05/2024 at [facility] Right: Shoulder [employer] 12/01/2028 DWX3PL / [id number] / Procedures Procedure Name Priority Date/Time Associated Diagnosis Comments XR SHOULDER RIGHT 2 OR MORE VIEWS Schedule Routine, Read Routine (OP Routine) 05/12/2024 11:28 AM ECONOMICS LECTURER Status post reverse arthroplasty of right shoulder US GUIDED THYROID FINE NEEDLE ASPIRATION 1ST LESION Schedule Routine, Read Routine (OP Routine) 04/20/2024 10:01 AM ECONOMICS LECTURER Nontoxic multinodular goiter CYTOLOGY Routine 04/20/2024 8:50 AM ECONOMICS LECTURER Nontoxic multinodular goiter US TRANSFER OF OUTSIDE FILMS Routine 04/06/2024 10:00 AM ECONOMICS LECTURER XR SHOULDER RIGHT 2 OR MORE VIEWS Schedule Routine, Read Routine (OP Routine) 03/15/2024 11:20 AM ECONOMICS LECTURER Status post reverse arthroplasty of right shoulder from Last 3 Months Results * XR Shoulder Right 2 or More Views (05/12/2024 11:28 AM ECONOMICS LECTURER) Anatomical Region Laterality Modality Upper Extremities, Shoulder Right Comp uted Radiography 05/12/2024 11:3 2 AM ECONOMICS LECTURER Impressions 05/12/2024 11:32 AM ECONOMICS LECTURER Right reverse shoulder arthroplasty in expected position with the suggestion of inferior glenoid notching. Electronically signed by: Abimael Fields M.D. Narrative 05/12/2024 11:32 AM ECONOMICS LECTURER EXAMINATION: XR SHOULDER RIGHT 2 OR MORE [...] Needle Aspiration 1st Lesion (04/20/2024 10:01 AM ECONOMICS LECTURER) Anatomical Region Laterality Modality Thyroid N/A Ultrasound, Comp uted Radiography 04/20/2024 10:4 0 AM ECONOMICS LECTURER Narrative 04/20/2024 10:44 AM ECONOMICS LECTURER EXAM DESCRIPTION: US GUIDED THYROID FINE NEEDLE [...] signed by Gerardo FOLEY T: Report ID: [id number] Reading Location: [id number] Procedure Note Gerardo Go MD - 04/20/2024 [...] Gerardo Go M.D. SN T: Report ID: [id number] Reading Location: [place] [address] us Jorge A Brothers MD IMG US PROCEDURES Final R esult * Cytology (04/20/2024 8:50 AM ECONOMICS LECTURER) Fluid (Thyroid Gland (Cytology)) 04/20/2024 8:51 AM ECONOMICS LECTURER Narrative PATHOLOGY [facility] - 04/22/2024 4:31 PM ECONOMICS LECTURER EPIC results best viewed via link to PDF [facility] [place] [address] Note to Patients: This report may contain [...] Gender: M : 1955 (Age: 68) Address: [address] [place] [address] [facility] #: [id number] Taken:04/20/2024 Received:04/20/2024 Reported: 04/22/2024 Patient Type: B [...] M.D. 04/22/2024 16:31:19 Saad Bartlett MS, CT([facility])[place] Gross Description A. Received are 6 smears [...] interpretation for this case was performed at [facility], Department of Surgical Pathology, [address] [facility] [id number], [place] [address] CLIA # [id number] REPORT IMAGES AND SCANNED DOCUMENTS, IF INCLUDED, ONLY VIEWABLE IN PDF VERSION OF REPORT The performance characteristics of some immunohistochemical stains, in-situ hybridization and fluorescence in-situ hybridization tests and immunophenotyping by flow cytometry cited in this report (if any) were determined by the Surgical Pathology and Flow Cytometry Departments at [facility] as part of an ongoing housing quality standard inspector program and in compliance with federally mandated [...] Surgical Pathology and Flow Cytometry Departments of [facility]. It has not been cleared or approved by the U. S. Food and Drug Administration. us Jorge A Brothers MD LAB CYTOLOGY ORDERABLES F inal Result PATHOLOGY [facility] * US Outside Reference (04/06/2024 10:00 AM ECONOMICS LECTURER) Narrative GLORIA_CHIQUIS_MHB_MHE - 04/08/2024 9:17 AM ECONOMICS LECTURER This order has been auto-finalized and does not contain a result. us Provider Transcribed Order IMG US PROCEDURES Fin al Result RAD_CLARIO_MHB_MHE * XR Shoulder Right 2 or More Views (03/15/2024 11:20 AM ECONOMICS LECTURER) Anatomical Region Laterality Modality Upper Extremities, Shoulder Right Comp uted Radiography 03/15/2024 12:1 1 PM ECONOMICS LECTURER Impressions 03/15/2024 12:11 PM ECONOMICS LECTURER Unchanged reverse right shoulder arthroplasty in expected position. The radiology attending physician has personally reviewed this study, and had reviewed and/or edited this written report and agrees with it. Electronically signed by: Abimael Fields M.D. Narrative 03/15/2024 12:11 PM ECONOMICS LECTURER EXAMINATION: XR SHOULDER RIGHT 2 OR MORE [...] Result from Last 3 Months Insurance MEDICARE [facility] MEDICARE [facility] Advance Directives For more information, please contact: [phone] Documents on File Type Date Recorded Patient Dipper Fish Expl anation ADVANCE DIRECTIVE 02/07/2024 12:40 AM [facility] ER [facility] * Full Code (Latest Code Status on File) Date Activated Date Inactivated Comments 02/05/2024 9:35 AM 02/05/2024 4:43 PM Care Teams Food Sampler Relationship Specialty Start Date End Date Jorge A Brothers MD [address] [place], [place] [address] PCP - General Family Practice 05/20/24
--- OUTSIDE RECORDS SUMMARY | 2024-06-11 18:29 | XMS_ITS | Clinical Summary ---
Author Organization [facility] Address [address], [address] [address] Phone Care Team Providers Care Hog Driver Name Role Phone Jeramy Kirby Primary Care Provider [phone] Social History Tobacco Use Types Packs/Day Years [...] Most Recently Relevant to Health Maintenance Insurance [facility] Care Teams Hog Driver Relationship Specialty Start Date End Date Jeramy Kirby DO [address] [facility] [address] [place], [place] [id number] PCP - General Internal Medicine 09/30/19
[2024-06-11 18:55] VITALS: BP 142/85; PULSE 66; RESP 16; O2SAT 98
--- NOTE | 2024-06-11 19:23 | PC.NURSE ---
after Laura Powell, SUPERVISORY HISTORIAN assess patient they walk out of room to this RN's desk and state that they do not want to follow plan of care that provider was recommending and would like to leave. asked pt if they would like provider to come back in to discuss plan and they say they are just going to walk out. pt then ambulates out of ED with steady gait and no resp. distress. declines any pain medication or last se of vitals. notified provider directly after. pt then goes to ED front desk officer and tells applied biology professor, I actually want to come back and still get a referral for ortho but nothing else . this RN directs patient back to assigned room and updates provider again.
== END 2024-06-11 19:44 | disposition home or self-care (01) ==
PROVIDERS: Emergency Provider Registered Nurse; PCP Internal Medicine
DX: M25.561 Pain in right knee (principal); M25.461 Effusion, right knee; I10 Essential (primary) hypertension; E66.9 Obesity, unspecified; Z68.35 Body mass index [BMI] 35.0-35.9, adult; N40.0 Benign prostatic hyperplasia without lower urinary tract symptoms; G47.33 Obstructive sleep apnea (adult) (pediatric); Z85.038 Personal history of other malignant neoplasm of large intestine; Z87.891 Personal history of nicotine dependence; Z90.49 Acquired absence of other specified parts of digestive tract; Z79.899 Other long term (current) drug therapy
CPT/HCPCS: 73564; 73590; 99284

== ENCOUNTER 2024-06-14 15:37 | Outpatient (NON) | payer MEDICARE, SELFPAY ==
[2024-06-14 16:20] LABS: Crystals Synovial Fluid None Seen (None Seen)
--- OUTSIDE RECORDS SUMMARY | 2024-06-14 18:03 | XMS_ITS | Referral Summary ---
Author Organization [facility] Center Address [address] [place] [address] Care Team Providers Care Finance Accounting Internship Name Role Phone Jorge A Brothers MD Primary Care Provider [phone] Encounters Date Type Department Care Team Description 05/19/2024 Orders Only [facility] Surgery [facility] Floor 5 [place] [address] Amy Ansari MD Multinodular goiter (Primary Dx) 05/18/2024 Telephone [facility] Orthopaedic Surgery [address] [place] [address] 12th [place] [address] [place] [address] Farnaz Amaro MD 05/12/2024 11:22 AM MAILROOM ASSISTANT - 05/12/2024 11:59 PM MAILROOM ASSISTANT Hospital Encounter [facility] [address] [place] [address] Status post reverse arthroplasty of right shoulder Discharge Disposition: Discharge to home or self care 05/12/2024 12:00 PM MAILROOM ASSISTANT Office Visit [facility] Orthopaedic Surgery [address] [place] [address] 2nd Floor [address] [place] [phone] Farnaz Amaro MD Status post reverse arthroplasty of right shoulder (Primary Dx) 04/20/2024 8:47 AM MAILROOM ASSISTANT - 04/20/2024 11:59 PM MAILROOM ASSISTANT Hospital Encounter [facility] [address] [place] [address] Nontoxic multinodular goiter Discharge Disposition: Discharge to home or self care 04/06/2024 10:00 AM MAILROOM ASSISTANT - 04/06/2024 11:59 PM MAILROOM ASSISTANT Hospital Encounter [facility] [employer] [address] [facility] [place] [address] Discharge Disposition: Discharge to home or self care from Last 3 Months Allergies Active Allergy [...] 2 (two) times a day Active omega 7-jaf-zip-fish oil 1,200 (144-216) mg capsuleIndicatio ns:OTC/ Heart [...] (11/11/2017): Added automatically from request for surgery [id number] Tear of left rotator cuff 11/11/2017 Overview (11/11/2017): Added automatically from request for surgery [id number] Social History Tobacco Use Types Packs/Day Years [...] on file Legal Sex Male 12:19 AM MAILROOM ASSISTANT Gender Identity Not on file Sexual Orientation Not on file Last Filed Vital Signs Vital Sign Reading Time Taken Comments Blood Pressure 130/67 02/05/2024 11:45 AM MAILROOM ASSISTANT Pulse 61 02/05/2024 11:45 AM MAILROOM ASSISTANT Temperature 36.4 C (97.5 F) 02/05/2024 10:00 AM MAILROOM ASSISTANT Respiratory Rate 24 02/05/2024 11:4 5 AM MAILROOM ASSISTANT Oxygen Saturation 95% 02/05/2024 11: 45 AM MAILROOM ASSISTANT Inhaled Oxygen Concentration - - Weight 115.5 kg (254 lb 9.6 oz) 02/05/2024 5:34 AM MAILROOM ASSISTANT Height 180.3 cm (5' 11 ) 02/05/2024 5:34 AM MAILROOM ASSISTANT Body Mass Index 35.51 02/05/2024 5:34 AM MAILROOM ASSISTANT Plan of Treatment Not on file Medical Devices Implanted Type Area Laborer Tin Can Device Identifier Shelf Expiration Date Model / Serial / Lot Ar[employer] Inc Ar-2324 Bcm Swivelock 4.75mm 24.5mm Self Punch Vent Shoulder [place] Suture - S0 - [id number] Implanted:Qty: 1 on 11/28/2017 by Nura Crisostomo MD at [facility] Screw Left: Shoulder [employer] 01/21/2019 AR-2324 BCM / 0 / [id number] Ar[employer] Inc Ar-2324 Bcm Swivelock 4.75mm 24.5mm Self Punch Vent Shoulder [place] Suture - S0 - [id number] Implanted:Qty: 1 on 11/28/2017 by Nura Crisostomo MD at [facility] Screw Left: Shoulder [employer] 06/22/2019 AR-2324 BCM / 0 / [id number] Ar[employer] Inc Ar-1927bcf Corkscrew Fiberwire Tigerwire 5.5mm 14.7mm [address] Mechanism Vent - S0 - [id number] Implanted:Qty: 2 on 11/28/2017 by Nura Crisostomo MD at [facility] Left: Shoulder [employer] 09/20/2018 AR-1927BC F / 0 / [id number] [employer] Aequalis Perform Reversed Od6.5 Mm L40 Mm Central Glenoid Screw Baseplate Nonsterile Dqc889 - [id number] Implanted:Qty: 1 on 02/05/2024 at [facility] Right: Shoulder [employer] [id number] / / [employer] Screw Glenoid Locking Reverse Aequalis Perform 5.0x26mm Titanium Huv272 - [id number] Implanted:Qty: 3 on 02/05/2024 at [facility] Right: Shoulder [employer] PDF545 / / [employer] Screw Glenoid Locking Reverse Aequalis Perform 5.0x22mm Titanium Msi337 - [id number] Implanted:Qty: 1 on 02/05/2024 at [facility] Right: Shoulder [employer] TPL932 / / [employer] Od25 Mm Full Wedge Augment Shoulder 15 D Baseplate Glenoid Vyn582 - [id number] Implanted:Qty: 1 on 02/05/2024 at [facility] Right: Shoulder [employer] 12/03/2028 NMZ633 / [id number] / [employer] Inc Tornier Aequalis Perform Od42 Mm Reverse Shoulder Standard Sphere Glenoid Cvj060 - [id number] Implanted:Qty: 1 on 02/05/2024 at [facility] Right: Shoulder [employer] 07/31/2028 RUI208 / [id number] / [employer]iable Medical [employer] Inc Insert Perform 10 Deg Ret Pdz8744 Dxf6708 - [id number] Implanted:Qty: 1 on 02/05/2024 at [facility] Right: Shoulder [employer] 07/01/2028 IPG0997 / [id number] / [employer] Inc Tray Stem Humeral Shoulder Reverse Long Tornier Perform 91l58y509ic Dwx3pl - [id number] Implanted:Qty: 1 on 02/05/2024 at [facility] Right: Shoulder [employer] Inc 12/01/2028 DWX3PL / [id number] / Procedures Procedure Name Priority Date/Time Associated Diagnosis Comments XR SHOULDER RIGHT 2 OR MORE VIEWS Schedule Routine, Read Routine (OP Routine) 05/12/2024 11:28 AM MAILROOM ASSISTANT Status post reverse arthroplasty of right shoulder US GUIDED THYROID FINE NEEDLE ASPIRATION 1ST LESION Schedule Routine, Read Routine (OP Routine) 04/20/2024 10:01 AM MAILROOM ASSISTANT Nontoxic multinodular goiter CYTOLOGY Routine 04/20/2024 8:50 AM MAILROOM ASSISTANT Nontoxic multinodular goiter US TRANSFER OF OUTSIDE FILMS Routine 04/06/2024 10:00 AM MAILROOM ASSISTANT from Last 3 Months Results * XR Shoulder Right 2 or More Views (05/12/2024 11:28 AM MAILROOM ASSISTANT) Anatomical Region Laterality Modality Upper Extremities, Shoulder Right Comp uted Radiography 05/12/2024 11:3 2 AM MAILROOM ASSISTANT Impressions 05/12/2024 11:32 AM MAILROOM ASSISTANT Right reverse shoulder arthroplasty in expected position with the suggestion of inferior glenoid notching. Electronically signed by: Abimeal Fields M.D. Narrative 05/12/2024 11:32 AM MAILROOM ASSISTANT EXAMINATION: XR SHOULDER RIGHT 2 OR MORE [...] Needle Aspiration 1st Lesion (04/20/2024 10:01 AM MAILROOM ASSISTANT) Anatomical Region Laterality Modality Thyroid N/A Ultrasound, Comp uted Radiography 04/20/2024 10:4 0 AM MAILROOM ASSISTANT Narrative 04/20/2024 10:44 AM MAILROOM ASSISTANT EXAM DESCRIPTION: US GUIDED THYROID FINE NEEDLE [...] signed by Gerardo FOLEY T: Report ID: [id number] Reading Location: [id number] Procedure Note Gerardo Go MD - 04/20/2024 [...] - Electronically signed by Gerardo Go M.D. T: Report ID: [id number] Reading Location: [place] [address] us Jorge A Brothers MD [facility] US PROCEDURES Final R esult * Cytology (04/20/2024 8:50 AM MAILROOM ASSISTANT) Fluid (Thyroid Gland (Cytology)) 04/20/2024 8:51 AM MAILROOM ASSISTANT Narrative PATHOLOGY [facility] - 04/22/2024 4:31 PM MAILROOM ASSISTANT EPIC results best viewed via link to PDF [facility] Laboratory of [place] [address] Note to Patients: This report may contain [...] Gender: M : 1955 (Age: 68) Address: [address] [place] [phone] [facility] #: [id number] Taken:04/20/2024 Received:04/20/2024 Reported: 04/22/2024 Patient Type: MHB ANCILLARY Service: UNKNOWN Location: Physician(s): Gerardo Go [...] Pagan M.D. 04/22/2024 16:31:19 Saad Bartlett MS, CT([facility])[place] Gross Description A. Received are [...] interpretation for this case was performed at [facility], Department of Surgical Pathology, [address] [facility] [id number], [place] [address] CLIA # [id number] REPORT IMAGES AND SCANNED DOCUMENTS, IF INCLUDED, ONLY VIEWABLE IN PDF VERSION OF REPORT The performance characteristics of some immunohistochemical stains, in-situ hybridization and fluorescence in-situ hybridization tests and immunophenotyping by flow cytometry cited in this report (if any) were determined by the Surgical Pathology and Flow Cytometry Departments at [facility] as part of an ongoing quality manager program and in compliance with federally mandated [...] Surgical Pathology and Flow Cytometry Departments of [facility]. It has not been cleared or approved by the U. S. Food and Drug Administration. us Jorge A Brothers MD LAB CYTOLOGY ORDERABLES F inal Result PATHOLOGY [facility] * Outside Reference (04/06/2024 10:00 AM MAILROOM ASSISTANT) Narrative GLORIA_CHIQUIS_MHRuby_MHE - 04/08/2024 9:17 AM MAILROOM ASSISTANT This order has been auto-finalized and does not contain a result. us Provider Transcribed Order IM US PROCEDURES Fin al Result RAD_CLARIO_MHB_MHE from Last 3 Months Insurance MEDICARE [facility] MEDICARE [facility] Advance Directives For more information, please contact: [phone] Documents on File Type Date Recorded Patient Educational Specialist Expl anation ADVANCE DIRECTIVE 02/07/2024 12:40 AM [facility] ER OF HEEL [employer] * Full Code (Latest Code Status on File) Date Activated Date Inactivated Comments 02/05/2024 9:35 AM 02/05/2024 4:43 PM Care Teams Finance Accounting Internship Relationship Specialty Start Date End Date Jorge A Brothers MD [address] [place] [address] PCP - General Family Practice 05/20/24
--- OUTSIDE RECORDS SUMMARY | 2024-06-14 18:03 | XMS_ITS | Encounter Summary ---
Author Organization [facility] Address [address] [place] [address] Care Team Providers Care Senior Shipping Clerk Name Role Phone Unavailable Primary Care Provider Unavailabl e Encounter Details Date Type Department Care Team (Late st Contact Info) Description 12/18/2018 Lab Requisition [facility] DermPath Lab [address] [place] [address] Jackie Alexander MD [address] [facility] [address] [place] [address] Social History Tobacco Use Types Packs/Day Years [...] AM CDT) Case Report Dermatopathology Report Case: [id number] Authorizing Provider: Jackie Alexander MD Collected: 12/17/2018 12:00 AM Ordering Location: [facility] DermPath Lab Received: 12/18/2018 06:54 [...] The specimen consists of a shave measuring [id number]. Jar 0. 1:20 PM CDT DERMATOPATHOLOGY LABORATORY [...] characteristic determined by the Dermatopathology Laboratory at [facility], directed by Dr. Karine Whitaker. These tests need not be, and therefore are not, approved by the [place] Food and Drug Administration. The tests are used for clinical purposes. Billing Codes Specimen Charges Stain Charges 53401 1 1:20 PM CDT DERMATOPATHOLOGY LABORATORY Embedded Images 1:20 PM CDT DERMATOPATHOLOGY LABORATORY Pathology/Cytolog y TISSUE SPECIMEN FROM SKIN / Unknown 12/17/2018 12/18/2018 6:54 AM CDT Jackie Alexander MD LAB - PATHOLOGY/CYTO LOGY ORDERABLES DERMATOPATHOLOGY LABORATORY [facility] - Department of Dermatology [address] 5th [place] [address], [facility] [phone] documented in this encounter Visit Diagnoses Not on filedocumented in this encounter
--- OUTSIDE RECORDS SUMMARY | 2024-06-14 18:03 | XMS_ITS | Clinical Summary ---
Author Organization [facility] Address [address], [address] [address] Phone Care Team Providers Care Cnc Grinder Name Role Phone Jeramy Kirby Primary Care Provider [phone] Social History Tobacco Use Types Packs/Day Years [...] Most Recently Relevant to Health Maintenance Insurance [facility] Care Teams Cnc Grinder Relationship Specialty Start Date End Date Jeramy Kirby DO [address] [facility] [address] [place], [place] [id number] PCP - General Internal Medicine 09/30/19
--- OUTSIDE RECORDS SUMMARY | 2024-06-14 18:03 | XMS_ITS | Clinical Summary ---
Author Organization [facility] Address [address] [place] [address] Care Team Providers Care Refiner Operator Name Role Phone Jorge A Brothers MD Primary Care Provider [phone] Allergies Active Allergy Reactions Criticality Noted Date [...] 2 (two) times a day Active omega 9-puk-bre-fish oil 1,200 (144-216) mg capsuleIndicatio ns:OTC/ Heart [...] (11/11/2017): Added automatically from request for surgery [id number] Tear of left rotator cuff 11/11/2017 Overview (11/11/2017): Added automatically from request for surgery [id number] Encounters Date Type Department Care Team Description 05/19/[address] [facility] Surgery [address] Floor 5 [place] [id number] Amy Ansari MD Multinodular goiter (Primary Dx) 05/18/[address] [facility] Orthopaedic Surgery [address] 12th [place] [address] [place] [address] Farnaz Amaro MD 05/12/2024 12:00 PM ALIGNING INSPECTOR Office Visit [facility] Orthopaedic Surgery [address] 2[address] Floor [address] [place] [address] Farnaz Amaro MD Status post reverse arthroplasty of right shoulder (Primary Dx) 05/12/2024 11:22 AM ALIGNING INSPECTOR - 05/12/2024 11:59 PM ALIGNING INSPECTOR Hospital Encounter [facility] [address] [place] [address] Status post reverse arthroplasty of right shoulder Discharge Disposition: Discharge to home or self care 04/20/2024 8:47 AM ALIGNING INSPECTOR - 04/20/2024 11:59 PM ALIGNING INSPECTOR Hospital Encounter [facility] [address] [place] [address] Nontoxic multinodular goiter Discharge Disposition: Discharge to home or self care 04/06/2024 10:00 AM ALIGNING INSPECTOR - 04/06/2024 11:59 PM ALIGNING INSPECTOR Hospital Encounter [facility] [employer] [address] [place] [address] Discharge Disposition: Discharge to home or self [...] on file Legal Sex Male 12:19 AM ALIGNING INSPECTOR Gender Identity Not on file Sexual Orientation Not on file Obstetrics History Last Filed Vital Signs Vital Sign Reading Time Taken Comments Blood Pressure 130/67 02/05/2024 11:45 AM ALIGNING INSPECTOR Pulse 61 02/05/2024 11:45 AM ALIGNING INSPECTOR Temperature 36.4 C (97.5 F) 02/05/2024 10:00 AM ALIGNING INSPECTOR Respiratory Rate 24 02/05/2024 11:4 5 AM ALIGNING INSPECTOR Oxygen Saturation 95% 02/05/2024 11: 45 AM ALIGNING INSPECTOR Inhaled Oxygen Concentration - - Weight 115.5 kg (254 lb 9.6 oz) 02/05/2024 5:34 AM ALIGNING INSPECTOR Height 180.3 cm (5' 11 ) 02/05/2024 5:34 AM ALIGNING INSPECTOR Body Mass Index 35.51 02/05/2024 5:34 AM ALIGNING INSPECTOR Plan of Treatment Health Maintenance Due Date Last Done Comments Colon Cancer Screening-Colonoscopy 1955 Depression Screening 1955 Hepatitis C Screening 1955 Prostate Cancer Screening-PSA 1955 DTaP/Tdap/Td Vaccine (1 - Tdap) 1968 Hepatitis B Screening 11/07/1975 Abdominal Aortic Aneurysm (A AA) Screen 2022 Well Visit 65+ 2022 Covid-19 Vaccine (2023-2 5 season) 2023 03/21/2023, 03/01/2022, 11/13/2021, Additional history exists Fall Risk Assessment 02/04/2025 02/05/2024 Zoster Vaccine Completed 04/09/2021, 02/06/2021 Pneumococcal vaccine 65+ Completed 12/03/2022 Influenza Vaccine Completed 01/23/2024, , 01/16/2022, Additional history exists Medical Devices Implanted Type Area Animal Researcher Device Identifier Shelf Expiration Date Model / Serial / Lot [employer] Ar-2324 Bcm Swivelock 4.75mm 24.5mm Self Punch Vent Shoulder Baldwin Suture - S0 - [id number] Implanted:Qty: 1 on 11/28/2017 by Nura Crisostomo MD at [facility] Screw Left: Shoulder [employer] 01/21/2019 AR-2324 BCM / 0 / [id number] [employer] Ar-2324 Bcm Swivelock 4.75mm 24.5mm Self Punch Vent Shoulder Baldwin Suture - S0 - [id number] Implanted:Qty: 1 on 11/28/2017 by Nura Crisostomo MD at [facility] Advanced [facility] Screw Left: Shoulder [employer] 06/22/2019 AR-2324 BCM / 0 / [id number] [employer] Ar-[id number] Corkscrew Fiberwire Tigerwire 5.5mm 14.7mm 2 [address] Mechanism Vent - S0 - [id number] Implanted:Qty: 2 on 11/28/2017 by Nura Crisostomo MD at [facility] Left: Shoulder [employer] 09/20/2018 AR-1927BC F / 0 / [id number] [employer] Aequalis Perform Reversed Od6.5 Mm L40 Mm Central Glenoid Screw Baseplate Nonsterile Dpb062 - [id number] Implanted:Qty: 1 on 02/05/2024 at [facility] Right: Shoulder [employer] [id number] / / [employer] Screw Glenoid Locking Reverse Aequalis Perform 5.0x26mm Titanium Tqq627 - [id number] Implanted:Qty: 3 on 02/05/2024 at [facility] Right: Shoulder [employer] [id number] / / [employer] Screw Glenoid Locking Reverse Aequalis Perform 5.0x22mm Titanium Kgk365 - [id number] Implanted:Qty: 1 on 02/05/2024 at [facility] Right: Shoulder [employer] [id number] / / [employer] Od25 Mm Full Wedge Augment Shoulder 15 D Baseplate Glenoid Xoo908 - [id number] Implanted:Qty: 1 on 02/05/2024 at [facility] Right: Shoulder [employer] 12/03/2028 [id number] / [id number] / Social Point Tornier Aequalis Perform Od42 Mm Reverse Shoulder Standard Sphere Glenoid Kyk012 - [id number] Implanted:Qty: 1 on 02/05/2024 at [facility] Right: Shoulder [employer] 07/31/2028 [id number] / [id number] / Social Point Insert Perform 10 Deg Ret Chp0553 [id number] - [id number] Implanted:Qty: 1 on 02/05/2024 at [facility] Right: Shoulder [employer] 07/01/2028 [id number] / [id number] / Social Point Tray Stem Humeral Shoulder Reverse Long Tornier Perform [id number] Dwx3pl - [id number] Implanted:Qty: 1 on 02/05/2024 at [facility] Right: Shoulder [employer] 12/01/2028 [id number] / [id number] / Procedures Procedure Name Priority Date/Time Associated Diagnosis Comments XR SHOULDER RIGHT 2 OR MORE VIEWS Schedule Routine, Read Routine (OP Routine) 05/12/2024 11:28 AM ALIGNING INSPECTOR Status post reverse arthroplasty of right shoulder US GUIDED THYROID FINE NEEDLE ASPIRATION 1ST LESION Schedule Routine, Read Routine (OP Routine) 04/20/2024 10:01 AM ALIGNING INSPECTOR Nontoxic multinodular goiter CYTOLOGY Routine 04/20/2024 8:50 AM ALIGNING INSPECTOR Nontoxic multinodular goiter US TRANSFER OF OUTSIDE FILMS Routine 04/06/2024 10:00 AM ALIGNING INSPECTOR from Last 3 Months Results * XR Shoulder Right 2 or More Views (05/12/2024 11:28 AM ALIGNING INSPECTOR) Anatomical Region Laterality Modality Upper Extremities, Shoulder Right Comp uted Radiography 05/12/2024 11:3 2 AM ALIGNING INSPECTOR Impressions 05/12/2024 11:32 AM ALIGNING INSPECTOR Right reverse shoulder arthroplasty in expected position with the suggestion of inferior glenoid notching. Electronically signed by: Abimael Fields M.D. Narrative 05/12/2024 11:32 AM ALIGNING INSPECTOR EXAMINATION: XR SHOULDER RIGHT 2 OR MORE [...] Needle Aspiration 1st Lesion (04/20/2024 10:01 AM ALIGNING INSPECTOR) Anatomical Region Laterality Modality Thyroid N/A Ultrasound, Comp uted Radiography 04/20/2024 10:4 0 AM ALIGNING INSPECTOR Narrative 04/20/2024 10:44 AM ALIGNING INSPECTOR EXAM DESCRIPTION: US GUIDED THYROID FINE NEEDLE [...] signed by Gerardo FOLEY T: Report ID: [id number] Reading Location: [id number] Procedure Note Gerardo Go MD - 04/20/2024 [...] Gerardo Go M.D. SN T: Report ID: [id number] Reading Location: [place] [address] us Jorge A Brothers MD IMG US PROCEDURES Final R esult * Cytology (04/20/2024 8:50 AM ALIGNING INSPECTOR) Fluid (Thyroid Gland (Cytology)) 04/20/2024 8:51 AM ALIGNING INSPECTOR Narrative PATHOLOGY [facility] - 04/22/2024 4:31 PM ALIGNING INSPECTOR EPIC results best viewed via link to PDF [facility] of Surgical Pathology [place], [place] [id number] Note to Patients: This report may contain [...] REPORT FINAL Patient Name: PRAKASH BARRETT Gender: David : 1955 (Age: 68) Address: [address] [place] [id number] Hospital #: [id number] Taken:04/20/2024 Received:04/20/2024 Reported: 04/22/2024 Patient Type: MHB [...] Pagan M.D. 04/22/2024 16:31:19 Saad Bartlett MS, CT([facility])[place] Gross Description A. Received are [...] interpretation for this case was performed at [facility], Department of Surgical Pathology, [address] [facility] [address], [id number], [place] [address] CLIA # [id number] REPORT IMAGES AND SCANNED DOCUMENTS, IF INCLUDED, ONLY VIEWABLE IN PDF VERSION OF REPORT The performance characteristics of some immunohistochemical stains, in-situ hybridization and fluorescence in-situ hybridization tests and immunophenotyping by flow cytometry cited in this report (if any) were determined by the Surgical Pathology and Flow Cytometry Departments at [facility] as part of an ongoing senior manager quality assurance program and in compliance with federally mandated [...] Surgical Pathology and Flow Cytometry Departments of [facility]. It has not been cleared or approved by the [place]. [place]. Food and Drug Administration. Jorge A Brothers MD LAB CYTOLOGY ORDERABLES F inal Result Performing Organization Address [facility] de Phone Number PATHOLOGY [facility] * US Outside Reference (04/06/2024 10:00 AM ALIGNING INSPECTOR) Narrative GLORIA_[email or web address] - 04/08/2024 9:17 AM ALIGNING INSPECTOR This order has been auto-finalized and does not contain a result. us Provider Transcribed Order IMG US PROCEDURES Fin al Result Performing Organization Address [facility] Co de Phone Number RAD_[email or web address] from Last 3 Months Insurance MEDICARE [facility] MEDICARE [facility] Advance Directives For more information, please contact: [phone] Documents on File Type Date Recorded Patient Strain Technician Expl anation ADVANCE DIRECTIVE 02/07/2024 12:40 AM [facility] [employer] LO[employer] AND [employer] * Full Code (Latest Code Status on File) Date Activated Date Inactivated Comments 02/05/2024 9:35 AM 02/05/2024 4:43 PM Care Teams Refiner Operator Relationship Specialty Start Date End Date Jorge A Brothers MD [address] [place] [address] PCP - General Family Practice 05/20/24
--- OUTSIDE RECORDS SUMMARY | 2024-06-14 18:03 | XMS_ITS | Clinical Summary ---
Author Organization [facility] Address [address] [place] [address] Care Team Providers Care Soakers Supervisor Name Role Phone Unavailable Primary Care Provider Unavailabl e Source Comments [facility],non-owned Affiliates and Associated Physician Practices is amultiple site organization consisting of ambulatory clinics and hospital sitesin [place], [place], [place] and [place]. This disclosure is being madepursuant to the Care Everywhere program and may not contain all information available regarding this patient. Last updated 17.[facility] Social History Tobacco Use Types Packs/Day Years [...]
== END 2024-06-14 15:38 | disposition home or self-care (01) ==
PROVIDERS: PCP Internal Medicine; Visit Provider Orthopaedic Surgery
DX: M25.461 Effusion, right knee (principal)
CPT/HCPCS: 89060

== ENCOUNTER 2025-02-15 08:35 | Outpatient (CLI) | payer MEDICARE, SELFPAY ==
--- OUTSIDE RECORDS SUMMARY | 2025-02-15 08:46 | XMS_ITS | Encounter Summary ---
Author Organization [facility] Address [address] [place] [address] Care Team Providers Care Marine Painter Name Role Phone Unavailable Primary Care Provider Unavailabl e Encounter Details Date Type Department Care Team (Late st Contact Info) Description 12/09/2024 Lab Requisition [facility] - DermPath Lab [address] [facility] [place] [address] Jackie Alexander MD [address] [facility] [address] [place] [address] Neoplasm of uncertain behavior of skin Social History Tobacco Use Types Packs/Day Years Used Date Smoking Tobacco: Never Assessed Sex and Gender Information Value Date Recorded Sex Assigned at Not on file Legal Sex Male 10:08 AM CDT Gender Identity Not on file Sexual Orientation Not on file documented as of this encounter Plan of Treatment Not on file documented as of this encounter Procedures Procedure Name Priority Date/Time Associated Diagnosis Comments DERMATOPATHOLOGY Routine 12/09/2024 8:45 AM CDT Neoplasm of uncertain behavior of skin documented in this encounter Results * DERMATOPATHOLOGY (12/09/2024 8:45 AM CDT) Case Report Dermatopathology Report Case: [id number] Authorizing Provider: Jackie Alexander MD Collected: 12/09/2024 08:45 AM Ordering Location: [facility] - Received: 12/10/2024 07:34 AM DermPath Lab Pathologist: Barbie Ruiz MD Specimen: Skin, left preauricular 3:35 PM CDT DERMATOPATHOLOGY LABORATORY Final Diagnosis Specimen A. SKIN, left preauricular: BASAL CELL CARCINOMA, NODULAR TYPE (C44.319) 5 3:35 PM CDT DERMATOPATHOLOGY LABORATORY at 1535 CDT Clinical History R/O BCC vs. AK 3:35 PM CDT DERMATOPATHOLOGY LABORATORY Gross Description Specimen A: Received is one formalin filled container labeled with the patient's name and designated left preauricular. The specimen consists of a shave biopsy measuring 6x5x1 mm. Jar 0. 3:35 PM CDT DERMATOPATHOLOGY LABORATORY Microscopic Description Specimen A. SKIN, left preauricular: Within the dermis there are aggregates of basaloid cells with a high nuclear to cytoplasmic ratio and peripheral palisading. 3:35 PM CDT DERMATOPATHOLOGY LABORATORY Disclaimer An external and internal positive and negative controls are appropriate for the histochemical, immunohistochemical and immunofluorescence stain(s) in this case (if any), except where stated explicitly. The performance characteristics of the stain(s) cited in this report were developed and its performance characteristic determined by the Dermatopathology Laboratory at [facility], directed by Dr. Karine Whitaker. These tests need not be, and therefore are not, approved by the [place] Food and Drug Administration. The tests are used for clinical purposes. Billing Codes Specimen Charges Stain Charges 25269 1 3:35 PM CDT DERMATOPATHOLOGY LABORATORY Embedded Images 3:35 PM CDT DERMATOPATHOLOGY LABORATORY Pathology/Cytolo gy TISSUE SPECIMEN FROM SKIN / Unknown 12/09/2024 8:45 AM CDT 12/10/2024 7:34 AM CDT us Jackie Alexander MD LAB - PATHOLOGY/CYTOLOGY ORD ERABLES Final Result DERMATOPATHOLOGY LABORATORY [facility] - Department of Dermatology [address], [address] [phone] documented in this encounter Visit Diagnoses Diagnosis Neoplasm of uncertain behavior of skin documented in this encounter
--- OUTSIDE RECORDS SUMMARY | 2025-02-15 08:46 | XMS_ITS | Clinical Summary ---
Author Organization [facility] Address [address] [place] [address] Care Team Providers Care Horse Trader Name Role Phone Jeramy Kirby DO Primary Care Provider [phone] Allergies Active Allergy Reactions Criticality Noted Date Comments Lisinopril Hives,Swelling Medium 11/11/2017 Medications doxazosin (CARDURA) 8 mg tablet Take 1 tablet (8 mg total) by mouth nightly 3 8 Active losartan (COZAAR) 100 mg tablet Take 1 tablet (100 mg total) by mouth nightly 1 8 Active metoprolol XL (TOPROL-XL) 25 mg 24 hr tablet Take 1 tablet (25 mg total) by mouth nightly 3 8 Active omeprazole (PriLOSEC) 20 mg capsule Take 1 capsule (20 mg total) by mouth 2 (two) times a day Active omega 9-mzh-vrr-fish oil 1,200 (144-216) mg capsule Take 1 capsule by mouth 2 (two) times a day Active SAW PALMETTO ORAL Take 1 capsule by mouth every morning Active rosuvastatin (CRESTOR) 10 mg tablet Take 1 tablet (10 mg total) by mouth every morning 4 Active triamcinolone (KENALOG) 0.1 % cream Apply 1 g topically as needed for rash 4 Active psyllium seed, with sugar, (FIBER ORAL) Take 2 tablets by mouth 2 (two) times a day Active COQ10, UBIQUINOL, ORAL Take 1 tablet by mouth every morning Active amLODIPine (NORVASC) 10 mg tablet Take 1 tablet (10 mg total) by mouth nightly Active naproxen (Aleve) 220 mg tablet Take 1 tablet (220 mg total) by mouth 2 (two) times a day as needed for pain Knee pain Active cholecalciferol (VITAMIN D-3) 2000 unit capsule Take 1 capsule (2,000 Units total) by mouth every morning Active oxyCODONE (ROXICODONE) 5 mg immediate release tabletIndicatio ns:Pain Take 1 tablet (5 mg total) by mouth every 6 (six) hours as needed for pain 8 tablet 5 Active acetaminophen 500 mg capsule Take 2 capsules (1,000 mg total) by mouth every 6 (six) hours as needed for pain Use first for management of pain 5 Active calcium carbonate (OS-VALARIE) 1,250 mg (500 mg elemental) tabletIndicatio ns:Hypocalcemia Prevention Take 1 tablet (1,250 mg total) by mouth 3 (three) times a day 90 tablet 5 Active docusate sodium (COLACE) 100 mg capsuleIndicati ons:constipatio n Take 1 capsule (100 mg total) by mouth 2 (two) times a day 30 capsule 5 Active levothyroxine (SYNTHROID) 175 mcg tablet Take 1 tablet (175 mcg total) by mouth daily 30 tablet 2 5 Active amoxicillin (AMOXIL) 500 mg tablet/capsule Take 4 tablets one hour before dental procedure. 4 tablet/capsul e 5 Active Active Problems Problem Noted Date Diagnosed Date HTN (hypertension) 08/24/2024 EFE (obstructive sleep apnea) 08/24/2024 Class 2 obesity with body ma ss index (BMI) of 35.0 to 35.9 in adult 08/24/2024 GERD (gastroesophageal reflux disease) 5 Goiter 07/16/2024 Complete tear of right rotator cuff 02/05/2024 Glenohumeral arthritis, right 12/30/2023 Pain in joint of left shoulder 11/11/2017 Overview (11/11/2017): Added automatically from request for surgery [id number] Tear of left rotator cuff 11/11/2017 Overview (11/11/2017): Added automatically from request for surgery [id number] Encounters Date Type Department Care Team Description 02/09/2025 11:35 AM MANAGER FARM - 02/09/2025 11:59 PM MANAGER FARM Hospital Encounter [facility] [address] [place] [address] Status post reverse arthroplasty of right shoulder Discharge Disposition: Discharge to home or self care 02/09/2025 11:30 AM MANAGER FARM Office Visit [facility] Medicine Orthopaedic Surgery [address] [facility] 2[address] [place] [id number] Farnaz Amaro MD Status post reverse arthroplasty of right shoulder (Primary Dx) from Last 3 Months Surgical History Surgery Date Site/Laterality Comments COLECTOMY COLONOSCOPY ROTATOR CUFF REPAIR 03/24/2017 - 03/23/2018 Left HYDROCELE EXCISION / REPAIR 03/24/2022 - 03/23/2023 HERNIA REPAIR 03/24/2017 - 03/23/2018 TOTAL SHOULDER ARTHROPLASTY 03/24/2023 - 03/23/2024 Righ t WISDOM TOOTH EXTRACTION Medical History Medical History Date Comments GERD (gastroesophageal reflux disease) Dyslipidemia Rotator cuff tear HTN (hypertension) Incisional hernia Ventral Sleep apnea Colon cancer (HCC) OA (osteoarthritis) Social History Tobacco Use Types Packs/Day Years Used Date Smoking Tobacco: Former Cigarettes 0.5 22 1 976 - 1998 Passive Smoke Exposure: Past Smokeless Tobacco: Never Tobacco Cessation:Counseling Given: Not Answered Alcohol Use Standard Drinks/Week Comments Not Asked 21 (1 standard drink = 0.6 oz pu re alcohol) AUDIT-C Answer Date Recorded Q1: How often do you have a drink containing alc ohol? 2-3 times a week 08/23/2024 Q2: How many drinks containi ng alcohol do you have on a typical day when you are drinking? 3 or 4 08/23/2024 Q3: How often do you have si x or more drinks on one occasion? Weekly 08/23/2024 Personal Safety Answer Date Recorded Have you ever been in or are you currently in a harmful physical or emotional relationship or is someone making you feel afraid or unsafe? Denies 08/23/2024 Sex and Gender Information Value Date Recorded Sex Assigned at Not on file Legal Sex Male 12:19 AM MANAGER FARM Gender Identity Not on file Sexual Orientation Not on file Last Filed Vital Signs Vital Sign Reading Time Taken Comments Blood Pressure 103/67 09/10/2024 2:44 PM CDT Pulse 63 09/10/2024 2:44 PM CDT Temperature 36.2 C (97.2 F) 09/10/2024 2:44 PM CDT Respiratory Rate 16 09/10/2024 2:44 PM CDT Oxygen Saturation 97% 09/10/2024 2:44 PM CDT Inhaled Oxygen Concentration - - Weight 117.3 kg (258 lb 9.6 oz) 09/10/2024 2:44 PM CDT Height 180.3 cm (5' 11) 08/23/2024 6:33 PM CDT Body Mass Index 36.07 08/23/2024 6:33 PM CDT Plan of Treatment Health Maintenance Due Date Last Done Comments Colon Cancer Screening-Colonoscopy 1955 Depression Screening 1955 Hepatitis C Screening 1955 Prostate Cancer Screening-PSA 1957 Hepatitis B Screening 11/07/1975 Abdominal Aortic Aneurysm (A AA) Screen 2022 Well Visit 65+ 2022 Covid-19 Vaccine (2024-2 6 season) 2024 03/21/2023, 03/01/2022, 11/13/2021, Additional history exists Influenza Vaccine (#1) 2024 , 01/21/2023, 01/16/2022, Additional history exists Fall Risk Assessment 08/24/2025 08/24/2024 DTaP/Tdap/Td Vaccine (2 - Td or Tdap) 09/28/2026 09/28/2016 Zoster Vaccine Completed 04/09/2021, 02/06/2021 Pneumococcal vaccine 65+ Completed 12/03/2022 Medical Devices Implanted Type Area Correctional Supervising Cook Device Identifier Shelf Expiration Date Model / Serial / Lot [employer] Ar-2324 Bcm Swivelock 4.75mm 24.5mm Self Punch Vent Shoulder Keyser Suture - S0 - [id number] Implanted:Qty: 1 on 11/28/2017 by Nura Crisostomo MD at [facility] Medicine Screw Left: Shoulder [employer] 01/21/2019 AR-2324 BCM / 0 / [id number] [employer] Ar-2324 Bcm Swivelock 4.75mm 24.5mm Self Punch Vent Shoulder Keyser Suture - S0 - [id number] Implanted:Qty: 1 on 11/28/2017 by uNra Crisostomo MD at [facility] Advanced Medicine Screw Left: Shoulder [employer] 06/22/2019 AR-2324 BCM / 0 / [id number] [employer] Ar-[id number] Corkscrew Fiberwire Tigerwire 5.5mm 14.7mm 2 [address] Mechanism Vent - S0 - [id number] Implanted:Qty: 2 on 11/28/2017 by Nura Crisostomo MD at [facility] Left: Shoulder [employer] 09/20/2018 AR-[id number] F / 0 / [id number] [employer] Aequalis Perform Reversed Od6.5 Mm L40 Mm Central Glenoid Screw Baseplate Nonsterile Ltp413 - [id number] Implanted:Qty: 1 on 02/05/2024 at [facility] Right: Shoulder [employer] [id number] / / [employer] Screw Glenoid Locking Reverse Aequalis Perform 5.0x26mm Titanium Owt072 - [id number] Implanted:Qty: 3 on 02/05/2024 at [facility] Right: Shoulder [employer] [id number] / / [employer] Screw Glenoid Locking Reverse Aequalis Perform 5.0x22mm Titanium Sle484 - [id number] Implanted:Qty: 1 on 02/05/2024 at [facility] Right: Shoulder [employer] [id number] / / [employer] Od25 Mm Full Wedge Augment Shoulder 15 D Baseplate Glenoid Vco981 - [id number] Implanted:Qty: 1 on 02/05/2024 at [facility] Right: Shoulder [employer] 12/03/2028 [id number] / [id number] / [employer] Tornier Aequalis Perform Od42 Mm Reverse Shoulder Standard Sphere Glenoid Elw418 - [id number] Implanted:Qty: 1 on 02/05/2024 at [facility] Right: Shoulder [employer] 07/31/2028 [id number] / [id number] / TM3 Systems Insert Perform 10 Deg Ret [id number] Yrj1975 - [id number] Implanted:Qty: 1 on 02/05/2024 at [facility] Right: Shoulder [employer] 07/01/2028 [id number] / [id number] / TM3 Systems Tray Stem Humeral Shoulder Reverse Long Tornier Perform [id number] Dwx3pl - [id number] Implanted:Qty: 1 on 02/05/2024 at [facility] Right: Shoulder [employer] 12/01/2028 [id number] / [id number] / Procedures Procedure Name Priority Date/Time Associated Diagnosis Comments XR SHOULDER RIGHT 2 OR MORE VIEWS Schedule Routine, Read Routine (OP Routine) 02/09/2025 11:42 AM MANAGER FARM Status post reverse arthroplasty of right shoulder from Last 3 Months Results * XR Shoulder Right 2 or More Views (02/09/2025 11:42 AM MANAGER FARM) Anatomical Region Laterality Modality Upper Extremities, Shoulder Right Comp uted Radiography 02/09/2025 1:28 PM MANAGER FARM Impressions 02/09/2025 1:28 PM MANAGER FARM Right reverse shoulder arthroplasty in unchanged, expected position. Electronically signed by: Abimael Fields M.D. Narrative 02/09/2025 1:28 PM MANAGER FARM EXAMINATION: XR SHOULDER RIGHT 2 OR MORE VIEWS HISTORY: Right shoulder arthroplasty follow-up COMPARISON: 05/12/2024 FINDINGS: Right reverse shoulder arthroplasty in unchanged, expected position. No periprosthetic fracture or component migration. Heterotopic ossification along the inferior glenoid, which may represent a traction osteophyte. Mild acromioclavicular osteoarthritis. Procedure Note Abimael Fields MD - 02/09/2025 EXAMINATION: XR SHOULDER RIGHT 2 OR MORE VIEWS HISTORY: Right shoulder arthroplasty follow-up COMPARISON: 05/12/2024 FINDINGS: Right reverse shoulder arthroplasty in unchanged, expected position. No periprosthetic fracture or component migration. Heterotopic ossification along the inferior glenoid, which may represent a traction osteophyte. Mild acromioclavicular osteoarthritis. IMPRESSION: Right reverse shoulder arthroplasty in unchanged, expected position. Electronically signed by: Abimael Fields M.D. Farnaz Amaro MD IMG XR PROCEDURES Fin al Result from Last 3 Months Insurance MEDICARE [facility] MEDICARE AARP Advance Directives For more information, please contact: [phone] Documents on File Type Date Recorded Patient Biometrics Specialist Expl anation ADVANCE DIRECTIVE 02/07/2024 12:40 AM [facility] * Full Code (Latest Code Status on File) Date Activated Date Inactivated Comments 08/23/2024 6:29 PM 08/24/2024 3:44 PM * Full Code Date Activated Date Inactivated Comments 02/05/2024 9:35 AM 02/05/2024 4:43 PM Care Teams Horse Trader Relationship Specialty Start Date End Date Jeramy Kirby DO PCP - General Internal Medicine 07/14/24
--- OUTSIDE RECORDS SUMMARY | 2025-02-15 08:46 | XMS_ITS | Encounter Summary ---
Author Organization [facility] Address [address] [place] [address] Care Team Providers Care J2Ee Software Engineer Name Role Phone Unavailable Primary Care Provider Unavailabl e Encounter Details Date Type Department Care Team (Late st Contact Info) Description 12/18/2018 Lab Requisition [facility] DermPath Lab [address] [place] [address] Jackie Alexander MD [address] [facility] [address] [place] [address] Social History Tobacco Use Types Packs/Day Years [...] AM CDT) Case Report Dermatopathology Report Case: [id number] Authorizing Provider: Jackie Alexander MD Collected: 12/17/2018 12:00 AM Ordering Location: [facility] DermPath Lab Received: 12/18/2018 06:54 AM Pathologist: Barbie Ruiz MD Specimen: Skin, back 9 1:20 PM CDT DERMATOPATHOLOGY LABORATORY Final Diagnosis Specimen A. SKIN, back: LENTIGINOUS MELANOCYTIC NEVUS, COMPOUND TYPE, IRRITATED (COMPOUND MELANOCYTIC NEVUS WITH ARCHITECTURAL DISORDER) (D22.5) 9 1:20 PM CDT DERMATOPATHOLOGY LABORATORY at 1320 CDT Clinical History R/O melanoma vs nevus, irregular color. Brown papule. 1:20 PM CDT DERMATOPATHOLOGY LABORATORY Gross Description Specimen A: Received is one formalin filled container labeled with the patient's name and designated back. The specimen consists of a shave measuring [id number]. Jar 0. 1:20 PM CDT DERMATOPATHOLOGY LABORATORY [...] characteristic determined by the Dermatopathology Laboratory at [facility], directed by Dr. Karine Whitaker. These tests need not be, and therefore are not, approved by the [place] Food and Drug Administration. The tests are used for clinical purposes. Billing Codes Specimen Charges Stain Charges 27482 1 1:20 PM CDT DERMATOPATHOLOGY LABORATORY Embedded Images 1:20 PM CDT DERMATOPATHOLOGY LABORATORY Pathology/Cytolog y TISSUE SPECIMEN FROM SKIN / Unknown 12/17/2018 12/18/2018 6:54 AM CDT us Jackie Alexander MD LAB - PATHOLOGY/CYTOLOGY ORD ERABLES Final Result DERMATOPATHOLOGY LABORATORY [facility] - Department of Dermatology [address] [place] [address], [facility] [phone] documented in this encounter Visit Diagnoses Not on filedocumented in this encounter
--- OUTSIDE RECORDS SUMMARY | 2025-02-15 08:46 | XMS_ITS | Clinical Summary ---
Author Organization [facility] Address [address] [place] [address] Care Team Providers Care Driver Guide Name Role Phone Unavailable Primary Care Provider Unavailabl e Source Comments [facility],non-owned Affiliates and Associated Physician Practices is amultiple site organization consisting of ambulatory clinics and hospital sitesin [place], [place], [place] and [place]. This disclosure is being madepursuant to the Care Everywhere program and may not contain all information available regarding this patient. Last updated 17.[facility] Encounters Date Type Department Care Team Description 12/09/2024 Lab Requisition [facility] - DermPath Lab [address] [facility] [place] [address] Jackie Alexander MD Neoplasm of uncertain behavior of skin from Last 3 Months Social History Tobacco Use Types Packs/Day Years [...] 11/07/2007 ZOSTER VACCINE (1 of 2) 11/07/2007 DEPRESSION SCREENING 03/24/2024 COVID-19 VACCINE (2024-2 6 season) 2024 INFLUENZA VACCINE (#1) 2024 Respiratory Syncytial Virus (RSV) Vaccine Pt: or [...] CDT Neoplasm of uncertain behavior of skin from Last 3 Months Results * DERMATOPATHOLOGY (12/09/2024 8:45 AM CDT) Case Report Dermatopathology Report Case: [id number] Authorizing Provider: Jackie Alexander MD Collected: 12/09/2024 08:45 AM Ordering Location: [facility] - Received: 12/10/2024 07:34 AM DermPath Lab Pathologist: Barbie Ruiz MD Specimen: Skin, left preauricular 3:35 PM CDT DERMATOPATHOLOGY LABORATORY Final Diagnosis Specimen A. SKIN, left preauricular: BASAL CELL CARCINOMA, NODULAR TYPE (C44.319) 3:35 PM CDT DERMATOPATHOLOGY LABORATORY at 1535 CDT Clinical History R/O BCC vs. AK 3:35 PM CDT DERMATOPATHOLOGY LABORATORY Gross Description Specimen A: Received is one formalin filled container labeled with the patient's name and designated left preauricular. The specimen consists of a shave biopsy measuring 6x5x1 mm. Jar 0. 09/22/202 5 3:35 PM CDT DERMATOPATHOLOGY LABORATORY Microscopic Description Specimen A. SKIN, left preauricular: Within the dermis there are aggregates of basaloid cells with a high nuclear to cytoplasmic ratio and peripheral palisading. 5 3:35 PM CDT DERMATOPATHOLOGY LABORATORY Disclaimer An external and internal positive and negative controls are appropriate for the histochemical, immunohistochemical and immunofluorescence stain(s) in this case (if any), except where stated explicitly. The performance characteristics of the stain(s) cited in this report were developed and its performance characteristic determined by the Dermatopathology Laboratory at [facility], directed by Dr. Karine Whitaker. These tests need not be, and therefore are not, approved by the [place] Food and Drug Administration. The tests are used for clinical purposes. Billing Codes Specimen Charges Stain Charges 40489 1 5 3:35 PM CDT DERMATOPATHOLOGY LABORATORY Embedded Images 3:35 PM CDT DERMATOPATHOLOGY LABORATORY Pathology/Cytolo gy TISSUE SPECIMEN FROM SKIN / Unknown 12/09/2024 8:45 AM CDT 12/10/2024 7:34 AM CDT Jackie Alexander MD LAB - PATHOLOGY/CYTOLOGY ORD ERABLES Final Result DERMATOPATHOLOGY LABORATORY [facility] - Department of Dermatology [facility] Medicine [address] [place] [address], [address] [place] [address], [facility] [phone] from Last 3 Months Insurance ANTH MEDICARE [facility] MEDICARE
--- OUTSIDE RECORDS SUMMARY | 2025-02-15 08:46 | XMS_ITS | Clinical Summary ---
Author Organization [facility] Address [address], [address] [address] Phone Care Team Providers Care Manager Pediatric Name Role Phone Jeramy Kirby Marika MAIN Primary Care Provider [phone] Social History Tobacco Use Types Packs/Day Years Used Date Smoking Tobacco: Never Assessed Sex and Gender Information Value Date Recorded Sex Assigned at Not on file Legal Sex Male 10:36 PM CDT Gender Identity Not on file Sexual Orientation Not on file Plan of Treatment Health Maintenance Due Date Last Done Comments Hepatitis C Virus (HCV) Screening 1955 TdaP Immunization 1955 Cologuard 2002 Immunochemical Fecal Occult Blood 2002 Pneumococcal Immunization (5 0+ years) (1 of 1 - PCV) 11/07/2007 Zoster Immunization (1 of 2) 11/07/2007 Colonoscopy 09/22/2022 09/23/2019, 02/15/2013 Colorectal Cancer Screening 09/22/2022 Influenza Immunization (#1) 2024 SARS-COV-2 Immunization ( - season) 2024 Respiratory Syncytial Virus (RSV) Immunization (Adult) (1 - 1-dose 75+ series) 2032 Hepatitis B Immunization Aged Out No longer eligible based on patient's age to complete this topic Human Papillomavirus (HPV) Immunization Aged Out No longer eligible b ased on patient's age to complete this topic Meningococcal Immunization (ACWY) Aged Out No longer eligible b ased on patient's age to complete this topic Rotavirus Immunization Aged Out No lo nger eligible based on patient's age to complete this topic Procedures Procedure Name Priority Date/Time Associated Diagnosis Comments HM COLONOSCOPY Routine 09/23/2019 from Last 3 Months or Most Recently Relevant to Health Maintenance Results * COLONOSCOPY (09/23/2019) Booker Chase DO PROCEDURE/MINOR SURGICAL ORDERA BLES Final Result from Last 3 Months or Most Recently Relevant to Health Maintenance Insurance [facility] Care Teams Manager Pediatric Relationship Specialty Start Date End Date Jeramy Kirby DO [address] [place] [address] PCP - General Internal Medicine 09/30/19
--- NOTE | 2025-02-15 08:49 | ECHO_ITS ---
Patient Info Name: Cyril Chau Age: 69 years : 1955 Gender: Male Ht: 71 in Wt: 255 lbs BSA: 2.45 m2 HR: 106 bpm BP: 116 / 82 mmHg Heart Rhythm: Atrial Fibrillation Technical Quality: Fair Exam Date: 02/15/2025 8:53 AM Patient Status: O Admit Date: 02/15/2025 Exam Type: CA echo dop color flow w con Complete two-dimensional, color flow and Doppler transthoracic echocardiogram is performed with contrast to opacify the left ventricle and to improve the deliniation of the left ventricle endocardial borders. [facility] Assistant: Addie Fuentes Attending Provider: Luis Eduardo Dos Santos DO Contrast/Agitated Saline Contrast/Ag. Saline: Definity Amount: 2.00 ml Administered By: Addie Fuentes New IV Access: Left and Dorsum of Hand Site Condition: IV removed, Site dressing applied and No extravasation Summary 1. Definity contrast administered improved wall motion interpretation. 2. Left ventricular chamber dimension is moderately enlarged. 3. Left ventricular systolic function is normal, estimated at 55-60. 4. The left ventricular diastolic function is normal. 5. E/e' 8 is minimally elevated. 6. Atrial fibrillation. 7. Left atrial chamber dimension is severely enlarged. 8. Right atrial chamber dimension is severely enlarged. 9. There is mild mitral valve regurgitation. 10. There is trace tricuspid valve regurgitation. 11. No pulmonary hypertension, estimated pulmonary arterial systolic pressure is 29 mmHg. Left Ventricle E/e' 8 is minimally elevated. Left ventricular chamber dimension is moderately enlarged. Left ventricular systolic function is normal, estimated at 55-60. The left ventricular diastolic function is normal. Definity contrast administered improved wall motion interpretation. Atrial fibrillation. Right Ventricle Right ventricular chamber dimension is normal. Right ventricular systolic function is normal. Left Atria Left atrial chamber dimension is severely enlarged. Right Atria Right atrial chamber dimension is severely enlarged. Aortic Valve The aortic valve is trileaflet. There is no aortic valve stenosis. There is no aortic valve regurgitation. Pulmonic Valve There is no pulmonic regurgitation. Mitral Valve There is no mitral valve stenosis. There is mild mitral valve regurgitation. Tricuspid Valve There is trace tricuspid valve regurgitation. No pulmonary hypertension, estimated pulmonary arterial systolic pressure is 29 mmHg. Pericardium/Pleural There is no pericardial effusion. Inferior Vena Cava Normal inferior vena cava with >50% collapse upon inspiration consistent with normal right atrial pressure, 5 mmHg. Aorta The aortic root size at the sinus of Valsalva is normal. Left Ventricular Outflow Tract Name Value Normal LVOT 2D LVOT Diameter 2.2 cm LVOT Doppler LVOT Peak Velocity 109 cm/s LVOT Peak Gradient 3 mmHg LVOT Mean Gradient 1 mmHg LVOT VTI 22 cm LVOT VTI/AV VTI Ratio 1.0 LVOT Stroke Volume 84 ml LVOT CO 4.6 l/min LVOT CI 1.9 l/min/m2 Pulmonic Valve Name Value Normal RVOT Doppler RVOT Peak Velocity 65 cm/s RVOT Peak Gradient 2 mmHg PV Doppler PV Peak Velocity 90 cm/s PV Peak Gradient 3 mmHg Mitral Valve Name Value Normal MV Diastolic Function MV E Peak Velocity 74 cm/s MV A Peak Velocity 1 cm/s MV E/A 93.3 MV Decel Time (PW) 328 ms Tricuspid Valve Name Value Normal TV Regurgitation Doppler TR Peak Velocity 247 cm/s TR Peak Gradient 24 mmHg Estimated PAP/RSVP RA Pressure 5 mmHg <=5 PA Systolic Pressure 29 mmHg <36 RV Systolic Pressure 29 mmHg <36 Aorta Name Value Normal Ascending Aorta Ao Root Diameter (MM) 3.0 cm Ao Root Diam Index (MM) 1.2 cm/m2 Aortic Valve Name Value Normal AV Doppler AV Peak Velocity 126 cm/s AV Peak Gradient 6 mmHg AV Mean Gradient 3 mmHg AV VTI 24 cm AV Area (Cont Eq VTI) 3.6 cm2 >=3.0 AV Area (Cont Eq Nick) 3.2 cm2 AV DI (Nick) 0.86 AV Regurgitation 2D LVOT Area 3.7 cm2 Ventricles Name Value Normal LV Dimensions 2D/MM IVS Diastolic Thickness (2D) 0.5 cm 0.6-1.0 IVS Diastole Thickness (MM) 1.0 cm 0.6-1.0 LVID Diastole (2D) 5.9 cm 4.2-5.8 LVID Diastole (MM) 5.9 cm 4.2-5.8 LVIW Diastolic Thickness (2D) 0.6 cm 0.6-1.0 LVIW Diastolic Thickness (MM) 1.0 cm 0.6-1.0 LVID Systole (2D) 3.8 cm 2.5-4.0 LVID Systole (MM) 3.8 cm 2.5-4.0 LVOT Diameter 2.2 cm LV Mass (2D Cubed) 119.44 g 88.00-224.00 LV Mass Index (2D Cubed) 49 g/m2 49-115 Relative Wall Thickness (2D) 0.21 <=0.42 LV Mass (MM Cubed) 236.89 g 88.00-224.00 LV Mass Index (MM Cubed) 97 g/m2 49-115 Relative Wall Thickness (MM) 0.34 LV Fractional Shortening/Ejection Fraction 2D/MM LV Fractional Shortening (2D) 36 % 25-43 LV Fractional Shortening (MM) 36 % 25-43 LV EF (MM Teichholz) 65 % LV EF (2D Teichholz) 65 % LV Diastolic Volume (4C MOD) 164 ml LV EF (4C MOD) 38 % LV Diastolic Volume (2C MOD) 175 ml LV EF (2C MOD) 62 % LV Diastolic Volume (BP MOD) 170 ml 62-150 LV Diastolic Volume Index (BP MOD) 70 ml/m2 34-74 LV Systolic Volume (BP MOD) 83 ml 21-61 LV Systolic Volume Index (BP MOD) 34 ml/m2 11-31 LV EF (BP MOD) 51 % 52-72 LV Diastolic Length (4C) 8.9 cm LV Systolic Length (4C) 8.1 cm LV Stroke Volume (4C MOD) 63 ml Atria Name Value Normal LA Dimensions LA Dimension (MM) 5.2 cm 3.0-4.0 Report Signatures
[2025-02-15] MEDS: PERFLUTREN LIPID MICROSPHERES 1.5 ML VIAL DILUTED TO 10 ML TOTAL VOLUME IV PUSH (09:35)
--- NOTE | 2025-02-15 09:42 | IVDEFINITY ---
Prior to administration of IV Definity the patient was educated on the risks and benefits of the imaging enhancing agent including potential adverse side effects. The patient verbalized understanding. Allergies were verified. No exclusion criteria were identified and at least one of the following inclusion criteria were met: 1) physician request, 2) patient technically difficult to image (per the [place] [employer] guidelines of two or more segments not discernable within the apical view), or 3) questionable left ventricular function. ?
== END 2025-02-15 08:36 | disposition home or self-care (01) ==
PROVIDERS: PCP Internal Medicine; Visit Provider Internal Medicine Cardiovascular Disease
DX: I48.0 Paroxysmal atrial fibrillation (principal); I51.7 Cardiomegaly; I34.0 Nonrheumatic mitral (valve) insufficiency
CPT/HCPCS: C8929; Q9957